=== PATIENT | female | born 1930 | race Caucasian/White ===

== ENCOUNTER 2020-04-05 17:40 | Emergency (ER) | payer OTHER, MEDICARE ==
[2020-04-05] MEDS ORDERED: LIDOCAINE 1% MPF 5 ML VIAL ONE (19:32)
[2020-04-05] MEDS ORDERED: CEPHALEXIN 250 MG CAP ONE (19:32)
--- OUTSIDE RECORDS SUMMARY | 2020-04-05 19:39 | XMS REPORT | Clinical Summary ---
:1930 Author Organization [facility] Address [address] [place] [address] Care Team Providers Name Role Phone Freedomrashi Rolando MondragonLauryn BURGOS Primary Care Provider Allergies Active Allergy Reactions Severity Noted Date Comments Codeine Itching 12/11/2012 Penicillins Rash Low 12/11/2012 Sulfa (Sulfonamide Antibiotics) Rash Low 3 Medications Medication Sig Dispensed Refills Start Date End Date Status JANUVIA 50 mg tablet Take 50 mg by 3 09/05/2018 Active mouth daily. glipiZIDE (GLUCOTROL) Take 10 mg by 3 09/20/2018 Active 10 MG 24 hr tablet mouth daily. furosemide (LASIX) 40 Take 40 mg by 3 08/17/2018 Active mg tablet mouth 2 (two) times a day. FLUoxetine (PROzac) 20 Take 20 mg by 3 09/11/2018 Active MG capsule mouth daily. carvedilol (COREG) 25 Take 25 mg by 0 Active MG tablet mouth 2 (two) times a day with meals. clonIDINE (CATAPRES) Take 0.1 mg by 0 Active 0.1 MG tablet mouth 3 (three) times a day. omeprazole (PriLOSEC) Take 40 mg by 0 Active 40 MG capsule mouth as needed. Active Problems Problem Noted Date Chest pain 11/03/2018 Angina pectoris 11/03/2018 SOB (shortness of breath) 11/03/2018 Essential hypertension 11/03/2018 Family History Medical History Relation Name Comments Cancer Mother Diabetes Mother Relation Name Status Comments Mother Social History Tobacco Use Types Packs/Day Years Used Date Never Assessed Sex Assigned at Date Recorded Not on file Job Start Date Occupation Industry Not on file Not on file Not on file Travel History Travel Start Travel End No recent travel history available. Last Filed Vital Signs Not on file Plan of Treatment Health Maintenance Due Date Last Done Comments DIABETIC RETINAL EYE EXAM 1930 DIABETIC FOOT EXAM 1942 URINE MICROALBUMIN 1942 SHINGLES VACCINES (#1) 1982 65+ PNEUMOCOCCAL VACCINE (1 of 2 - PCV13) 1997 INFLUENZA VACCINE 05/06/2020 Results Not on fileafter 04/05/2019 Insurance Payer Benefit Plan / Subscriber ID Effective Dates Phone Addre ss Type Group MEDICARE MEDICARE PART A xxxxxxxxxxx 1997-Present [place], [place] Medicare AND B AARP AARP SUPPLEMENT xxxxxxxxxxx 2018-Present Commercial Advance Directives For more information, please contact: [phone] 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
--- OUTSIDE RECORDS SUMMARY | 2020-04-05 19:39 | XMS REPORT | Summary of Care ---
:1930 Author Organization [facility] - Health Address [address] [place] [address] Care Team Providers Name Role Phone Pcp, Does Not Have A Primary Care Provider Encounter Details Date Type Department Care Team Description 03/24/2020 Orders Only [facility] Doctor Unassigned, No [address] [facility] [place] [address] [address] [place] [address] Allergies Active Allergy Reactions Severity Noted Date Comments Codeine Itching 12/11/2012 Penicillins Rash 12/11/2012 Sulfa (Sulfonamide Antibiotics) Rash 3 documented as of this encounter (statuses as of 03/24/2020) Medications Medication Sig Dispensed Refills Start Date End Date Status carvedilol (COREG) 25 mg Take 25 mg by 0 Active tablet mouth 2 (two) times daily with meals. lisinopril Take 20 mg by 0 Activ e (PRINIVIL,ZESTRIL) 20 mg mouth 2 (two) tablet times daily. cloNIDine (KAPVAY) 0.1 mg Take 0.1 mg by 0 Active Tb12 mouth 2 (two) times daily. torsemide (DEMADEX) 20 mg Take 20 mg by 0 Active tablet mouth daily. FLUoxetine (PROZAC) 20 mg Take 20 mg by 0 Active capsule mouth daily. levothyroxine (SYNTHROID) Take 88 mcg by 0 Active 88 mcg tablet mouth every morning. Cyanocobalamin (VITAMIN Take by mouth 0 Active B-12) 1,000 mcg TbSR daily. glipiZIDE XL (GLUCOTROL Take 1 Tab by 90 Tab 0 06/10/2013 Active XL) 10 mg 24 hr mouth daily tabletIndications: Type with breakfast. II or unspecified type diabetes mellitus with unspecified complication, uncontrolled documented as of this encounter (statuses as of 03/24/2020) Active Problems No known active problemsdocumented as of this encounter (statuses as of 03/24/2020) Social History Tobacco Use Types Packs/Day Years Used Date Never Smoker Smokeless Tobacco: Never Used Alcohol Use Drinks/Week oz/Week Comments No Sex Assigned at Date Recorded Not on file Job Start Date Occupation Industry Not on file Not on file Not on file Travel History Travel Start Travel End No recent travel history available. COVID-19 Exposure Response Date Recorded In the last month, have you been in contact with No / Unsure 03/24/2020 9:50 AM CDT someone who was confirmed or suspected to have Coronavirus / COVID-19? documented as of this encounter Last Filed Vital Signs Not on filedocumented in this encounter Plan of Treatment Date Type Specialty Care Team Description 03/24/2020 Nurse Visit Infusion Therapy Rolando Oswald, DO [address] [place] [address] 1, Ad[facility] Infusion Nurse Health Maintenance Due Date Last Done Comments DTaP,Tdap,and Td Vaccines (1 - Tdap) 1943 Depression Screening 1944 Zoster Recombinant Vaccine (SHINGRIX) (1 of 2) 1982 Medicare Wellness Visit 1997 Osteoporosis Screening 1997 PNEUMOCOCCAL VACCINES 65+ (1 of 2 - PCV13) 1997 INFLUENZA VACCINE (Season Ended) 2020 documented as of this encounter Procedures Procedure Name Priority Date/Time Associated Diagnosis Comme nts ASSIGNMENT OF BENEFITS Routine 03/24/2020 9:51 AM CDT documented in this encounter Results Not on filedocumented in this encounter Insurance Payer Benefit Plan / Subscriber ID Effective Dates Phone Addre ss Type Group MEDICARE MEDICARE PART xxxxxxxxxxx 1997-Yaakov 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
--- OUTSIDE RECORDS SUMMARY | 2020-04-05 19:39 | XMS REPORT | Continuity of Care Document ---
:1930 Author Organization [facility] t Address [address] [place] [address] Care Team Providers Name Role Phone Radha Oswald DO Primary Care Physician 1, Infusion Nurse Attending Clinician Unavailable Doctor Unassigned, Name Attending Clinician Unavailable Problems Condition Condition Condition Status Onset Resolution Last Treating Co mments Source Name Details Category Date Date Treatment Clinician Date Chest pain Chest pain Disease Active [place] 11-03 [facility] 00:00: st 00 Angina Angina Disease Active [place] pectoris pectoris 11-03 Method i 00:00: st 00 SOB SOB Disease Active [place] (shortness (shortness 11-03 [facility] of breath) of breath) 00:00: st 00 Essential Essential Disease Active [facility] hypertensi hypertensi 11-03 Me [facility] on on 00:00: st 00 Allergies, Adverse Reactions, Alerts Allergy Allergy Status Severity Reaction(s) Onset Inactive Treating Comm ents Source Name Type Date Date Clinician Codeine Propensi Active Itching [place] ty to 12-11 [facility] adverse 00:00: st reaction 00 s to drug Penicill [place]i Active Rash [place] ty to 12-11 [facility] adverse 00:00: st reaction 00 s to drug Sulfa Propensi Active Rash [place] (Sulfona ty to 12-11 Methodi mide adverse 00:00: st Antibiot reaction 00 ics) s to drug Family History Family Member Diagnosis Comments Start Date Stop Date Source Natural mother Cancer [place] [facility] Natural mother Diabetes [place] [facility] Social History Social Habit Start Date Stop Date Quantity Comments Source Sex Assigned At [facility] Medications Ordered Filled Start Stop Current Ordering Indication Dosage Frequency Signature Comments Components Source Medication Medication Date Date Medication? Clinician (SIG) Name Name carvedilol Yes 25mg Q.5D Take 25 mg [place] (COREG) 25 -29 by mouth 2 [facility] MG tablet 10:07: (two) st 53 times a day with meals. clonIDINE Yes .1mg [id number] Take 0.1 [place] (CATAPRES) 11-03 [id number] mg by Me [facility] 0.1 MG 10:07: 3D mouth 3 st tablet 53 (three) times a day. omeprazole Yes 40mg Take 40 mg [place] (PriLOSEC) 11-03 by mouth Metho di 40 MG 10:07: as needed. st capsule 53 glipiZIDE 2017-10 Yes 10mg QD Take 10 mg [place] (GLUCOTROL) 2-16 by mouth Meth zachery 10 MG 24 hr 00:00: daily. st tablet 00 FLUoxetine 2017-10 Yes 20mg QD Take 20 mg [place] (PROzac) 20 07 by mouth Meth zachery MG capsule 00:00: daily. st 00 JANUVIA 50 2017-10 Yes 50mg QD Take 50 mg [place] mg tablet 11-06 by mouth Method i 00:00: daily. st 00 furosemide 2017-10 Yes 40mg Q.5D Take 40 mg [place] (LASIX) 40 1-12 by mouth 2 Met [facility] mg tablet 00:00: (two) st 00 times a day. Procedures This patient has no known procedures. Plan of Care Planned Activity Planned Date Details Comments Source Future Scheduled 2020-05-06 INFLUENZA VACCINE [place] [facility] 00:00:00 [code = INFLUENZA VACCINE] Future Scheduled 1997 65+ PNEUMOCOCCAL [facility] 00:00:00 VACCINE (1 of 2 - PCV13) [code = 65+ PNEUMOCOCCAL VACCINE (1 of 2 - PCV13)] Future Scheduled 1982 SHINGLES VACCINES (#1) [place] [facility] 00:00:00 [code = SHINGLES VACCINES (#1)] Future Scheduled 1942 DIABETIC FOOT EXAM [place] [facility] 00:00:00 [code = DIABETIC FOOT EXAM] Future Scheduled 1942 URINE MICROALBUMIN [place] [facility] 00:00:00 [code = URINE MICROALBUMIN] Future Scheduled 1930 DIABETIC RETINAL EYE [facility] 00:00:00 EXAM [code = DIABETIC RETINAL EYE EXAM] Encounters Start End Encounter Admission Attending Care Care Encounter Source Date/Time Date/Time Type Type Clinicians Facility Department ID 2020-03-24 2020-03-24 Nurse 1, Jaime GOMEZ [id number] 27 10:05:14 10:20:14 Visit Infusion Erica [id number] Nurse Cassie [id number] Surgical [id number] [place] 053 2020-03-24 2020-03-24 Orders Doctor STEPHEN [id number] 00:00:00 00:00:00 Only Unassigned, AMINATA [id number] [place] [facility] [id number] Results This patient has no known results.
--- OUTSIDE RECORDS SUMMARY | 2020-04-05 19:39 | XMS REPORT | Summary of Care ---
:1930 Author Organization [facility] - [facility] Address [address] [place] [address] Care Team Providers Name Role Phone Pcp, Does Not Have A Primary Care Provider Reason for Visit Reason Comments INJECTION (Routine) Status Reason Specialty Diagnoses / Referred By Referred To Procedures Contact Contact Closed IM-INTERNAL Diagnoses Chronic kidney disease, stage 5 Chronic kidney disease, stage 5 Rolando Desir, 1, Adc Infusion MEDICINE / Procedures PROCRIT INJECTION INJECTION DO Nurse Infusion Therapy [address] [place] [address] Encounter Details Date Type Department Care Team Description 03/24/2020 Nurse Visit [facility] Infusion Crystal Desir G, DO [address] [place] [address] Chronic kidney disease, stage V (Primary Dx); Therapy - [place] 1, [facility] Infusion Nurse Anemia of chronic disease; [address] [facility] 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; Drive Erythropoietin deficiency an emia; [place], [place] Anemia, unspeci fied type; [address] Folate deficiency; [phone] B12 deficiency Allergies Active Allergy Reactions Severity Noted Date Comments Codeine Itching 12/11/2012 Valsartan Dizziness 03/24/2020 Penicillins Rash 12/11/2012 Sulfa (Sulfonamide Antibiotics) Rash [...] type diabetes mellitus with unspecified complication, uncontrolled Hospital, Clinic, or Other Ordered Dose Route Frequency Start Date End Date Status Facility Administered Medication cloNIDine (CATAPRES) tablet 0.1 mg Oral ONCE 03/24/2020 0 03/24/2020 Ended 0.1 mg epoetin megan-epbx 88629 Units SC ONCE 03/24/2020 0 Ended (RETACRIT) injection 10,000 Units documented as of this encounter (statuses as [...] of this encounter Last Filed Vital Signs Vital Sign Reading Time Taken Comments Blood Pressure 195/85 03/24/2020 10:25 AM CDT Pulse 56 03/24/2020 10:25 AM CDT Temperature 36.9 C (98.4 F) 03/24/2020 10:25 AM CDT Respiratory Rate 20 03/24/2020 10:25 AM CDT Oxygen Saturation 97% 03/24/2020 10:25 AM CDT Inhaled Oxygen Concentration - - Weight 65.3 kg (144 lb) 03/24/2020 10:25 AM CDT Height 162.6 cm (5' 4") 03/24/2020 10:25 AM CDT Body Mass Index 24.72 03/24/2020 10:25 AM CDT documented in this encounter Progress Notes Cynthia Julien RN - 03/24/2020 10:30 AM CDT Infusion Therapy Note ALLERGIES: Patient has no known allergies. Diagnosis (Primary) Stage 5 chronic kidney disease Time Out Patient identified by Name and Infusion verified with Aury Domínguez RN Comments: (1005) Patient arrived preop for Procrit injection, patient verified, plan of care explained to patient, patient verbalized understanding. Monitors applied, VSS, patient denies pain at this time. Procrit order placed and pharmacy notified. Pts BP 195/85 Dr Desir contacted new orders received. For Clonidine .01mg PO now done at 1058. Will monitor BP (1126) Pt refused labs. Called Dr Desir, he gave lab results from 03/08. Hgb of 8.8. Can draw H&H and 6 month labs next visit. (1133) Aseptic technique applied for SQ injection to abdomen, patient tolerated well, no adverse reactions noted. (1135) Patient with no signs or symptoms of any adverse reactions, medication card and handout givento patient, patient verbalized understanding. Patient instructed to return for next scheduled injection as noted on handout and to follow-up with ordering physician if any adverse reactions occur. Patient verbalized understanding. (1145) Patient escorted to front of hospital in stable condition and ride awaiting. HYDRATION/THERAPEUTIC DRUG DOSE ROUTE START TIME STOP TIME Procrit 10,000 units SQ 1133 1133 documented in this encounter Plan of Treatment Name Type Priority Associated Diagnoses Order S chedule PROFILE / HEMOGRAM LAB Routine ONCE for 1 Occurrences starting 2019 until 03/24/2020 VITAMIN B12, LEVEL LAB Routine B12 deficiency Expecte d: 03/24/2020, Expires: 2020 FOLATE LAB Routine Folate deficiency Expected: 03/24/2020, Expires: 2020 IRON LAB Routine Anemia of chronic Expected: 03/24/2020, disease Expires: 03/24/2021 Chronic kidney disease, stage V 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 int josefina Erythropoietin deficiency anemia TOTAL IRON BINDING LAB Routine 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, CAPACITY disease Expires: 03/24/2021 Chronic kidney disease, stage V 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 int josefina Erythropoietin deficiency anemia FERRITIN SERUM LAB Routine Anemia of chronic Expected : 03/24/2020, disease Expires: 03/24/2021 Chronic kidney disease, stage V 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 int josefina Erythropoietin deficiency anemia Health Maintenance Due Date Last Done Comments DTaP,Tdap,and Td Vaccines (1 - Tdap) 1943 Depression Screening 1944 Zoster Recombinant Vaccine (SHINGRIX) (1 of 2) 1982 Medicare Wellness Visit 1997 Osteoporosis Screening 1997 PNEUMOCOCCAL VACCINES 65+ (1 of 2 - PCV13) 1997 INFLUENZA VACCINE (Season Ended) 2020 documented as of this encounter Results Not on filedocumented in this encounter Visit Diagnoses Diagnosis Chronic kidney disease, stage V - Primar y Chronic kidney disease, Stage V Anemia of chronic disease Anemia of other chronic disease Iron deficiency anemia secondary to inad equate dietary iron intake Erythropoietin deficiency anemia Other specified anemias Anemia, unspecified type Folate deficiency Other B-complex deficiencies B12 deficiency Other B-complex deficiencies documented in this encounter Administered Medications Medication Order MAR Action Action Date Dose Rate Site cloNIDine (CATAPRES) tablet 0.1 Given 03/24/2020 10:58 AM CDT 0. 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
--- NOTE | 2020-04-05 19:53 | EDPHYS ---
Physician Documentation [facility] Name: Zafar Short Age: 89 yrs Sex: Female : 1930 Arrival Date: 04/05/2020 Time: 17:43 Bed 15 Private MD: Rolando Oswald ED Physician Jose Luis Brady HPI: 04/05 18:54 This 89 yrs old Female presents to ER via Wheelchair with complaints of Knot kb Under Breast. 18:54 The patient presents with an abscess of the under left breast. Description: kb erythematous, swollen, warm. Onset: The symptoms/episode began/occurred 1 week(s) ago. Possible cause(s): unknown. Associated signs and symptoms: Pertinent positives: erythema, swelling. Modifying factors: the symptoms are alleviated by nothing, the symptoms are aggravated by squeezing the lesion and expressing the contents, touching. Severity of symptoms: At their worst the symptoms were mild, in the emergency department the symptoms are unchanged. The patient has not experienced similar symptoms in the past. The patient has not recently seen a physician. Historical: - Allergies: 17:56 Codeine; em 17:56 PENICILLINS; em 17:56 Sulfa (Sulfonamide Antibiotics); em - PMHx: 17:56 chronic kidney disease; Diabetes - NIDDM; Anemia; Hypertension; em - PSHx: 17:56 Hysterectomy; Cholecystectomy; BACK surgery; Knee surgery; ROTATOR CUFF; em - Immunization history:: Adult Immunizations up to date. - Social history:: Smoking status: Patient denies any tobacco usage or history of. ROS: 18:53 Constitutional: Negative for fever, chills, and weight loss, Cardiovascular: Negative kb for chest pain, palpitations, and edema, Respiratory: Negative for shortness of breath, cough, wheezing, and pleuritic chest pain, Abdomen/GI: Negative for abdominal pain, nausea, vomiting, diarrhea, and constipation, Back: Negative for injury and pain, MS/Extremity: Negative for injury and deformity, Neuro: Negative for headache, weakness, numbness, tingling, and seizure. 18:53 Skin: Positive for abscess, of the under left breast. Exam: 18:53 Constitutional: This is a well developed, well nourished patient who is awake, alert, kb and in no acute distress. Head/Face: Normocephalic, atraumatic. Chest/axilla: Normal chest wall appearance and motion. Nontender with no deformity. No lesions are appreciated. Cardiovascular: Regular rate and rhythm with a normal S1 and S2. No gallops, murmurs, or rubs. Normal PMI, no JVD. No pulse deficits. Respiratory: Lungs have equal breath sounds bilaterally, clear to auscultation and percussion. No rales, rhonchi or wheezes noted. No increased work of breathing, no retractions or nasal flaring. Abdomen/GI: Soft, non-tender, with normal bowel sounds. No distension or tympany. No guarding or rebound. No evidence of tenderness throughout. MS/ Extremity: Pulses equal, no cyanosis. Neurovascular intact. Full, normal range of motion. Neuro: Awake and alert, GCS 15, oriented to person, place, time, and situation. Cranial nerves II-XII grossly intact. Motor strength 5/5 in all extremities. Sensory grossly intact. Cerebellar exam normal. Normal gait. 18:53 Skin: abscess, that is small, of the under left breast, with fluctuance, with induration. Vital Signs: 17:52 BP 188 / 71; Pulse 63; Resp 18; Temp 98.5(O); Pulse Ox 98% on R/A; Weight 65.32 kg; em Height 5 ft. 4 in. (162.56 cm); Pain 8/10; 20:00 BP 158 / 80; Pulse 60; Resp 18; Temp 98.5; Pulse Ox 100% on R/A; mg2 17:52 Body Mass Index 24.72 (65.32 kg, 162.56 cm) em Procedures: 19:51 I \T\ D: Incision and drainage was performed for an abscess of the under left breast kb Prepped with Betadine, Anesthetized with 2 ml's 1% Lidocaine. Incised with #11 blade. Drained moderate amount purulent fluid. Dressing: sterile 4x4 gauze, the patient tolerated the procedure well. MDM: 18:46 Patient medically screened. kb 18:52 Data reviewed: vital signs, nurses notes. Data interpreted: Pulse oximetry: on room air kb is 98 %. Interpretation: normal. Counseling: I had a detailed discussion with the patient and/or guardian regarding: the historical points, exam findings, and any diagnostic results supporting the discharge/admit diagnosis, the need for outpatient follow up, a family practitioner, to return to the emergency department if symptoms worsen or persist or if there are any questions or concerns that arise at home. 04/05 18:52 Order name: I\T\D Setup; Complete Time: 19:28 kb Administered Medications: 19:28 Drug: KeFLEX 500 mg Route: PO; mg2 19:58 Follow up: Response: No adverse reaction mg2 19:45 Drug: Lidocaine (1 %) 1 vials {Note: administered by the provider.} Volume: 5 ml; mg2 Route: Infiltration; 19:59 Follow up: Response: No adverse reaction mg2 Disposition: 04/06 05:45 Co-signature as Attending Physician, Jose Luis Brady MD I agree with the assessment and kdr plan of care. Disposition: 04/05/20 19:53 Discharged to Home. Impression: Cutaneous abscess of chest wall. - Condition is Stable. - Discharge Instructions: Skin Abscess, [id number]. - Prescriptions for Keflex 500 mg Oral Capsule - take 1 capsule by ORAL route every 8 hours for 10 days; 30 capsule. - Medication Reconciliation Form, Thank You Letter, Antibiotic Education, Prescription Opioid Use form. - Follow up: Private Physician; When: 2 - 3 days; Reason: Recheck today's complaints, Continuance of care, Re-evaluation by your physician. Follow up: Emergency Department; When: As needed; Reason: Worsening of condition. Signatures: Eunice Wilks, CARD DEALER-C CARD DEALER-Ckb Jose Luis Brady MD MD [facility] Alan Balbuena, EMILY RN Phil Reyes RN RN mg2 Corrections: (The following items were deleted from the chart) 04/05 20:03 19:53 04/05/2020 19:53 Discharged to Home. Impression: Cutaneous abscess of chest wall. mg2 Condition is Stable. Forms are Medication Reconciliation Form, Thank You Letter, Antibiotic Education, Prescription Opioid Use. Follow up: Private Physician; When: 2 - 3 days; Reason: Recheck today's complaints, Continuance of care, Re-evaluation by your physician. Follow up: Emergency Department; When: As needed; Reason: Worsening of condition. kb
--- NOTE | 2020-04-05 19:53 | ER ---
Nurse's Notes [facility] Name: Zafar Short Age: 89 yrs Sex: Female : 1930 Arrival Date: 04/05/2020 Time: 17:43 Bed 15 Private MD: Rolando Oswald Diagnosis: Cutaneous abscess of chest wall Presentation: 04/05 17:52 Chief complaint: Patient states: knot on left side of rib for about a month, last week em it became red, painful and started having drainage, denies fever. Coronavirus screen: Proceed with normal triage. Patient denies a cough. Patient denies shortness of breath or difficulty breathing. Patient denies measured and/or subjective temperature greater than 100.4F prior to today's visit. Patient denies travel on a cruise ship or to a country the [facility] currently lists as an affected area. Patient denies contact with known and/or suspected case of COVID-19. Ebola Screen: Patient negative for fever greater than or equal to 101.5 degrees Fahrenheit, and additional compatible Ebola Virus Disease symptoms Patient denies exposure to infectious person. Patient denies travel to an Ebola-affected area in the 21 days before illness onset. No symptoms or risks identified at this time. Initial Sepsis Screen: Does the patient meet any 2 criteria? No. Patient's initial sepsis screen is negative. Does the patient have a suspected source of infection? Yes: Skin breakdown/wound. Risk Assessment: Do you want to hurt yourself or someone else? Patient reports no desire to harm self or others. Onset of symptoms was March 06, 2000. 17:52 Method Of Arrival: Wheelchair em 17:52 Acuity: FELISHA 3 em Historical: - Allergies: 17:56 Codeine; em 17:56 PENICILLINS; em 17:56 Sulfa (Sulfonamide Antibiotics); em - PMHx: 17:56 chronic kidney disease; Diabetes - NIDDM; Anemia; Hypertension; em - PSHx: 17:56 Hysterectomy; Cholecystectomy; BACK surgery; Knee surgery; ROTATOR CUFF; em - Immunization history:: Adult Immunizations up to date. - Social history:: Smoking status: Patient denies any tobacco usage or history of. Screenin:35 Abuse screen: Denies threats or abuse. Denies injuries from another. Nutritional mg2 screening: No deficits noted. Tuberculosis screening: No symptoms or risk factors identified. Fall Risk None identified. Assessment: 19:34 General: Appears in no apparent distress. comfortable, Behavior is calm, cooperative. mg2 Pain: Complains of pain in under the breast. Neuro: Level of Consciousness is awake, alert, obeys commands, Oriented to person, place, time, situation. Cardiovascular: Capillary refill < 3 seconds Patient's skin is warm and dry. Respiratory: Airway is patent Respiratory effort is even, unlabored, Respiratory pattern is regular, symmetrical. GI: No signs and/or symptoms were reported involving the gastrointestinal system. : No signs and/or symptoms were reported regarding the genitourinary system. EENT: No signs and/or symptoms were reported regarding the EENT system. Derm: Abscess located on under the breast is quarter sized, is raised, was lanced by patient prior to arrival. Musculoskeletal: Circulation, motion, and sensation intact. Capillary refill < 3 seconds. Vital Signs: 17:52 BP 188 / 71; Pulse 63; Resp 18; Temp 98.5(O); Pulse Ox 98% on R/A; Weight 65.32 kg; em Height 5 ft. 4 in. (162.56 cm); Pain 8/10; 20:00 BP 158 / 80; Pulse 60; Resp 18; Temp 98.5; Pulse Ox 100% on R/A; mg2 17:52 Body Mass Index 24.72 (65.32 kg, 162.56 cm) em ED Course: 17:43 Patient arrived in ED. ag5 17:44 Unknown, Unknown is Private Physician. ag5 17:44 Rolando Oswald DO is Private Physician. ag5 17:54 Triage completed. em 17:56 Arm band placed on. em 18:04 [facility] kb 18:04 Jose Luis Brady MD is Attending Physician. kb 19:28 Phil Reyes RN is Primary Nurse. mg2 19:35 Patient has correct armband on for positive identification. Pulse ox on. NIBP on. Door mg2 closed. Warm blanket given. 19:35 Patient did not have IV access during this emergency room visit. mg2 20:02 Assist provider with I \T\ D: of an abscess on left under the breast Set up I\T\D tray. mg 2 Performed by Eunice HAGANC Dressing with 4X4s, Patient tolerated well. Administered Medications: 19:28 Drug: KeFLEX 500 mg Route: PO; mg2 19:58 Follow up: Response: No adverse reaction mg2 19:45 Drug: Lidocaine (1 %) 1 vials {Note: administered by the provider.} Volume: 5 ml; mg2 Route: Infiltration; 19:59 Follow up: Response: No adverse reaction mg2 Outcome: 19:53 Discharge ordered by MD. ansari 20:03 Discharged to home ambulatory. mg2 20:03 Condition: stable 20:03 Discharge instructions given to patient, Instructed on discharge instructions, follow up and referral plans. medication usage, wound care, Demonstrated understanding of instructions, follow-up care, medications, wound care, Prescriptions given X 1. 20:03 Patient left the ED. mg2 Signatures: Eunice Wilks, [employer]-Ckb Alan Balbuena, RN RN Phil Connolly RN RN mg2 Joseluis Mejia ag5
[2020-04-05 20:09] VITALS: TEMP 98.5
[2020-04-05 20:11] VITALS: BP 158/80; O2SAT 100
== END 2020-04-05 20:03 | disposition home or self-care (01) ==
LOC: ER 17:40
PROC: 0J960ZZ Drainage of Chest Subcutaneous Tissue and Fascia, Open Approach (ICD-10-PCS; principal; 2020-04-05)
DX: L02.213 Cutaneous abscess of chest wall (principal); I12.9 Hypertensive chronic kidney disease with stage 1 through stage 4 chronic kidney disease, or unspecified chronic kidney disease; E11.22 Type 2 diabetes mellitus with diabetic chronic kidney disease; N18.9 Chronic kidney disease, unspecified; Z88.0 Allergy status to penicillin; Z88.2 Allergy status to sulfonamides; Z88.5 Allergy status to narcotic agent
CPT/HCPCS: 99284

== ENCOUNTER 2021-05-07 05:56 | Inpatient (IN) | payer OTHER, MEDICARE ==
--- OUTSIDE RECORDS SUMMARY | 2021-05-07 05:59 | XMS REPORT | Continuity of Care Document ---
:1930 Author Organization [facility] t Address 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 11-03 00:00: Hospita 00 l SOB SOB Disease Active Methodi (shortness (shortness 11-03 of breath) of breath) 00:00: Ho spita 00 l Essential Essential Disease Active Met hodi hypertensi hypertensi 11-03 on on 00:00: Hospita 00 l Chest pain Chest pain Disease Active M ethodi 11-03 00:00: Hospita 00 l Allergies, Adverse Reactions, Alerts Allergy Allergy Status Severity Reaction(s) Onset Inactive Treating Comm ents Source Name Type Date Date Clinician Codeine Propensi Active Itching Method i ty to 12-11 st adverse 00:00: Hospita reaction 00 l s to drug Penicill Propensi Active Rash Method i ins ty to 12-11 st adverse 00:00: Hospita reaction 00 l s to drug Sulfa Propensi Active Rash Methodi (Sulfona ty to 12-11 st mide adverse 00:00: Hospita Antibiot reaction 00 l ics) s to drug Family History Family Member Diagnosis Comments Start Date Stop Date Source Natural mother Cancer [facility] Natural mother Diabetes [facility] Social History Social Habit Start Date Stop Date Quantity Comments Source Sex Assigned At [birth year] [facility] 00:00:00 00:00:00 Smoking Status Start Date Stop Date Source Unknown if ever smoked [facility] Medications Ordered Filled Start Stop Current Ordering Indication Dosage Frequency Signature Comments Components Source Medication Medication Date Date Medication? Clinician (SIG) Name Name carvedilol Yes 25mg Q.5D Take 25 mg M ethodi (COREG) 25 -[address] MG tablet 16:07: (two) Hospita 53 times a l day with meals. clonIDINE Yes .1mg [id number] Take 0.1 Methodi (CATAPRES) - [id number] mg by st 0.1 MG 16:07: 3D mouth 3 Hospita tablet 53 (three) l times a day. omeprazole Yes 40mg Take 40 mg M ethodi (PriLOSEC) 11-[address] 40 MG 16:07: as needed. Hospit a capsule 53 l glipiZIDE 2017-10 Yes 10mg QD Take 10 mg Me thodi (GLUCOTROL) -[address] 10 MG 24 hr 00:00: daily. Hosp trevor tablet 00 l FLUoxetine 2017-10 Yes 20mg QD Take 20 mg M ethodi (PROzac) 20 -[address] MG capsule 00:00: daily. Hospi ta 00 l JANUVIA 50 2017-10 Yes 50mg QD Take 50 mg M ethodi mg tablet - by mouth st 00:00: daily. Hospita 00 l furosemide 2017-10 Yes 40mg Q.5D Take 40 mg M ethodi (LASIX) 40 1-[address] mg tablet 00:00: (two) Hospita 00 times a l day. Procedures This patient has no known procedures. Plan of Care Planned Activity Planned Date Details Comments Source Future Scheduled Test 65+ PNEUMOCOCCAL [facility] VACCINE (1 of 4 - PCV13) [code = 65+ PNEUMOCOCCAL VACCINE (1 of 4 - PCV13)] Future Scheduled Test DIABETES: RETINAL EYE [facility] EXAM [code = DIABETES: RETINAL EYE EXAM] Future Scheduled Test DIABETIC FOOT EXAM [facility] [code = DIABETIC FOOT EXAM] Future Scheduled Test URINE MICROALBUMIN [facility] [code = URINE MICROALBUMIN] Future Scheduled Test COVID-19 VACCINE (1) [facility] [code = COVID-19 VACCINE (1)] Future Scheduled Test SHINGLES VACCINES (#1) [facility] [code = SHINGLES VACCINES (#1)] Future Scheduled Test INFLUENZA VACCINE [code [facility] = INFLUENZA VACCINE] Encounters Start End Encounter Admission Attending Care Care Encounter Source Date/Time Date/Time Type Type Clinicians Facility Department ID 2020-10-05 2020-10-05 Pauline Markos [facility] [id number] 00:00:00 00:00:00 Alireza Mehta SPECIALTY [id number] CARE [id number] CENTER AT [id number] [facility] 2020-09-27 2020-09-27 Nurse 1, [facility] [id number] 09:22:54 09:37:54 Visit Infusion [place] [id number] Nurse Matthews [id number] Surgical [id number] [place] [address]202020-09-27 2020-09-27 Orders Doctor STEPHEN [id number] 00:00:00 00:00:00 Only Unassigned, [place] [id number] [place] [facility] [id number] 2020-09-14 2020-09-14 Nurse 1, [facility] [id number] 10:35:08 10:50:08 Visit Infusion [place] [id number] Nurse Matthews [id number] Surgical [id number] [place] [address] 2020-08-29 2020-08-29 Nurse 1, [facility] [id number] 10:21:00 10:36:00 Visit Infusion [place] [id number] Nurse Matthews [id number] Surgical [id number] [place] [id number] 2020-08-17 Nurse 1, [facility] [id number] 10:03:32 10:18:32 Visit Infusion [place] [id number] Nurse Cassie [id number] Surgical [id number] [place] [address] 2020-08-17 2020-08-17 Orders Doctor MITCHELL [id number] 00:00:00 00:00:00 Only Unassigned, AMINATA [id number] [place] [facility] [id number] [id number] 2020-08-03 2020-08-03 Nurse 1, [facility] [id number] 10:05:56 10:20:56 Visit Infusion [place] [id number] Nurse Cassie [id number] Surgical [id number] [place] [address] 2020-08-03 2020-08-03 Orders Doctor MITCHELL [id number] 00:00:00 00:00:00 Only Unassigned, [id number] [id number] 2020-07-20 2020-07-20 Nurse 1, [facility] [id number] 09:17:23 10:17:23 Visit Infusion [place] [id number] Nurse Cassie [id number] Surgical [id number] [place] [address] Results This patient has no known results.
[2021-05-07 07:41] LABS: Absolute Lymphocytes (CBC) 0.5 K/uL (0.7-4.9); Hematocrit 29.1 % (36.0-45.0); Lymphocytes % 6.3 % (15.3-44.8); MPV 9.9 fL (7.6-11.3); RBC Red Blood Cell Count 3.22 M/uL (3.86-4.86)
[2021-05-07 07:42] LABS: Protime INR 1.03
[2021-05-07 07:43] LABS: Urine Blood 1+ (Negative); Urine Glucose Trace (Negative); Urine Protein 3+ (Negative)
[2021-05-07 08:17] LABS: Urine Bacteria <20 /HPF (<20); Urine RBC NONE SEEN /HPF (NONE SEEN)
[2021-05-07 08:22] LABS: Albumin 3.2 g/dL (3.4-5.0); Bilirubin Direct 0.2 mg/dL (0-0.2); Bilirubin Total 0.5 mg/dL (0.2-1.0); Protein, Total 6.8 g/dL (6.4-8.2); Troponin (Emerg Dept Use Only) 0.22 ng/mL (0.0-0.045)
[2021-05-07] MEDS ORDERED: METOPROLOL TAR 50 MG TAB ONE (08:24)
[2021-05-07] MEDS ORDERED: METOPROLOL TARTRATE 5 MG/5 ML INJ IV ONE (08:24)
--- NOTE | 2021-05-07 09:02 | ER ---
Nurse's Notes [facility] Name: Zafar Short Age: 89 yrs Sex: Female : 1930 Arrival Date: 05/07/2021 Time: 06:09 Bed 8 Private MD: Diagnosis: Unspecified atrial fibrillation;Unspecified combined systolic (congestive) and diastolic (congestive) heart failure;Acute kidney failure, unspecified Presentation: 05/07 06:09 Chief complaint: EMS states: they were toned out for report of pt with shortness of bb breath x 2 days pt was 95% on RA on their arrival. Coronavirus screen: difficulty breathing, Client presents with at least one sign or symptom that may indicate coronavirus-19. Standard/surgical mask placed on the client. Ebola Screen: No symptoms or risks identified at this time. Initial Sepsis Screen: Does the patient meet any 2 criteria? No. Patient's initial sepsis screen is negative. Does the patient have a suspected source of infection? No. Patient's initial sepsis screen is negative. Risk Assessment: Do you want to hurt yourself or someone else? Patient reports no desire to harm self or others. Onset of symptoms was May 05, 2021. 06:09 Method Of Arrival: EMS: [facility] bb 06:09 Acuity: FELISHA 2 bb Triage Assessment: 06:11 General: Appears uncomfortable, slender, Behavior is calm, cooperative. Pain: Denies bb pain. Neuro: Level of Consciousness is awake, alert, obeys commands, Oriented to person, place, time, situation. Cardiovascular: Capillary refill < 3 seconds Patient's skin is warm and dry. Respiratory: Reports shortness of breath Respiratory effort is labored, Onset: The symptoms/episode began/occurred 2 days ago, the patient has mild shortness of breath. Historical: - Allergies: 06:11 Codeine; bb 06:11 PENICILLINS; bb 06:11 Sulfa (Sulfonamide Antibiotics); bb - PMHx: 06:11 Anemia; chronic kidney disease; Diabetes - NIDDM; Hypertension; Pulmonary embolisim; bb COPD; - Immunization history:: Adult Immunizations up to date. - Social history:: Smoking status: Patient/guardian denies using tobacco. Screenin:10 Abuse screen: Denies threats or abuse. Denies injuries from another. Nutritional tr6 screening: No deficits noted. Tuberculosis screening: No symptoms or risk factors identified. Fall Risk None identified. Assessment: 08:10 Cardiovascular: Rhythm is atrial fibrillation. Respiratory: Airway is patent Breath tr6 sounds with crackles. 08:16 General: Appears comfortable, Behavior is cooperative, appropriate for age. Pain: tr6 Denies pain. Neuro: Level of Consciousness is awake, alert, obeys commands, Oriented to person, place, time, situation, Gait is unsteady. Cardiovascular: Edema is 3+ to left midcalf, left ankle, left foot, right midcalf, right ankle and right foot pitting to left midcalf, left ankle, left foot, right midcalf, right ankle and right foot. Respiratory: Respiratory effort is labored. GI: No deficits noted. : No deficits noted. EENT: No deficits noted. Derm: No deficits noted. Musculoskeletal: No deficits noted. 12:13 Reassessment: MD Data at bedside. tr6 Vital Signs: 06:09 BP 200 / 87; Pulse 83; Resp 20 S; Temp 98.4(TE); Pulse Ox 100% on 2 lpm NC; Weight bb 61.23 kg (R); Height 5 ft. 4 in. (162.56 cm) (R); Pain 0/10; 08:10 BP 233 / 96; Pulse 77; Resp 20; Pulse Ox 100% on R/A; tr6 10:00 BP 198 / 84; Pulse 78; Resp 20; Pulse Ox 98% on R/A; tr6 11:00 BP 184 / 69; Pulse 76; Resp 20; Pulse Ox 98% on R/A; tr6 12:00 BP 196 / 78; Pulse 79; Resp 18; Pulse Ox 100% on 2 lpm NC; tr6 13:00 BP 186 / 71; Pulse 77; Resp 20; Pulse Ox 100% on 2 lpm NC; tr6 14:24 BP 180 / 72; Pulse 75; Resp 18; Pulse Ox 100% on 2 lpm NC; tr6 06:09 Body Mass Index 23.17 (61.23 kg, 162.56 cm) bb ED Course: 06:09 Patient arrived in ED. bb 06:11 Triage completed. bb 06:11 Arm band placed on pt remains on EMS stretcher awaiting room assignment. bb 07:18 Thor Chandler PA is PHCP. cp 07:18 Charlie Gordon MD is Attending Physician. cp 07:23 Vane Kitchen, EMILY is Primary Nurse. tr6 07:54 EKG done, by ED staff, reviewed by Thor FELTON. em1 07:57 XRAY Chest (1 view) In Process Unspecified. EDMS 08:13 Resting quietly. tr6 08:13 Patient has correct armband on for positive identification. Bed in low position. Call tr6 light in reach. Side rails up X 1. Side rails up X2. case monitor on. Pulse ox on. NIBP on. Door closed. Noise minimized. Visitors limited. Lights dimmed. Moved to private room. Warm blanket given. Diet: Patient is NPO. 08:13 No provider procedures requiring assistance completed. Maintain EMS IV. Dressing tr6 intact. Good blood return noted. Site clean \T\ dry. Gauge \T\ site: L AC 20. Patient maintains SpO2 saturation greater than 95% on room air. 08:18 Primary Nurse role handed off by Vane Kitchen, EMILY bd 08:42 Vane Kitchen, EMILY is Primary Nurse. tr6 09:00 Aakash Herrera is Hospitalizing Provider. cp 09:56 Stauffer cath inserted, using sterile technique, 16 Fr., by ED staff, balloon inflated, to tr6 gravity drainage. 12:14 Patient admitted, IV remains in place. tr6 Administered Medications: 08:09 Drug: Lopressor (metoprolol) 5 mg Route: IVP; Site: left antecubital; tr6 08:09 Drug: Lopressor (metoprolol TARTRATE) 50 mg Route: PO; tr6 09:19 CANCELLED (Physician Discretion): hydrALAZINE 10 mg IVP once cp 09:28 Drug: Aspirin Chewable Tablet 324 mg Route: PO; tr6 09:28 Drug: Lovenox (enoxaparin) 1 mg/kg Route: Sub-Q; Site: abdomen; tr6 09:28 Drug: Lasix (furosemide) 40 mg Route: IVP; Site: left antecubital; tr6 10:04 Drug: cloNIDine 0.1 mg Route: PO; tr6 12:00 Drug: Ativan (LORazepam) 0.5 mg Route: IVP; Site: left antecubital; tr6 14:40 Drug: cloNIDine 0.1 mg Route: PO; tr6 Outcome: 09:02 Decision to Hospitalize by Provider. cp 12:13 Admitted to tr6 12:13 Condition: stable 12:13 Instructed on the need for admit. 21:35 Admitted to Tele accompanied by tech, room 202, with chart, Report called to Monik ruff 21:40 Patient left the ED. ea Signatures: Dispatcher [employer] EDMS Sera Odell Brenda, RN RN Bear Altamirano em1 Thor Chandler PA PA Irene Lambert, EMILY RN Vane Camargo RN EMILY tr6
--- NOTE | 2021-05-07 09:03 | EDPHYS ---
Physician Documentation [facility] Name: Zafar Short Age: 89 yrs Sex: Female : 1930 Arrival Date: 05/07/2021 Time: 06:09 Bed 8 Private MD: ED Physician Charlie Gordon HPI: 05/07 07:25 This 89 yrs old Female presents to ER via EMS with complaints of Breathing cp Difficulty. 07:25 The patient has shortness of breath at rest. Onset: The symptoms/episode began/occurred cp 2 day(s) ago. Duration: The symptoms are continuous. Associated signs and symptoms: Pertinent negatives: chest pain, productive cough, diaphoresis, fever, vomiting. 07:25 Severity of symptoms: in the emergency department the symptoms are unchanged despite cp home interventions. Historical: - Allergies: 06:11 Codeine; bb 06:11 PENICILLINS; bb 06:11 Sulfa (Sulfonamide Antibiotics); bb - PMHx: 06:11 Anemia; chronic kidney disease; Diabetes - NIDDM; Hypertension; Pulmonary embolisim; bb COPD; - Immunization history:: Adult Immunizations up to date. - Social history:: Smoking status: Patient/guardian denies using tobacco. ROS: 07:30 Constitutional: Negative for body aches, chills, fever, poor PO intake. cp 07:30 Eyes: Negative for injury, pain, redness, and discharge. cp 07:30 ENT: Negative for ear pain, sore throat, difficulty swallowing, difficulty handling secretions. 07:30 Cardiovascular: Positive for edema, Negative for chest pain. 07:30 Respiratory: Positive for shortness of breath, at rest. Negative for wheezing. 07:30 Abdomen/GI: Negative for abdominal pain, nausea, vomiting, and diarrhea. 07:30 Back: Negative for radiated pain. 07:30 Skin: Negative for cellulitis, rash. 07:30 Neuro: Negative for altered mental status, headache, weakness. 07:30 All other systems are negative. Exam: 07:33 Constitutional: The patient appears in no acute distress, alert, awake, cp non-diaphoretic, non-toxic, well developed, well nourished. 07:33 Head/Face: Normocephalic, atraumatic. cp 07:33 Eyes: Periorbital structures: appear normal, Pupils: equal, round, and reactive to light and accomodation, Extraocular movements: intact throughout, Conjunctiva: normal, no exudate, no injection, Sclera: no appreciated abnormality, Lids and lashes: appear normal, bilaterally. 07:33 ENT: External ear(s): are unremarkable, Nose: is normal, Mouth: Lips: moist, Oral mucosa: moist, Posterior pharynx: Airway: no evidence of obstruction, patent. 07:33 Neck: ROM/movement: is normal, is supple, without pain, no range of motions limitations. 07:33 Chest/axilla: Inspection: normal, Palpation: is normal, no crepitus, no tenderness. cp 07:33 Cardiovascular: Rate: normal, Rhythm: irregular, Edema: ankle edema, that is moderate, cp JVD: is not appreciated. 07:33 Respiratory: mild respiratory distress is noted, Respirations: labored breathing, that is mild, Breath sounds: decreased breath sounds, that are mild, throughout, rhonchi, are not appreciated, stridor, is not appreciated, wheezing: is not appreciated. 07:33 Abdomen/GI: Inspection: abdomen appears normal, Bowel sounds: active, all quadrants, Palpation: abdomen is soft and non-tender, in all quadrants. 07:33 Skin: cellulitis, is not appreciated, no rash present. 07:33 Neuro: Orientation: to person, place \T\ time. Mentation: is normal, Motor: moves all fours, strength is normal. 07:57 ECG was reviewed by the Attending Physician. cp Vital Signs: 06:09 BP 200 / 87; Pulse 83; Resp 20 S; Temp 98.4(TE); Pulse Ox 100% on 2 lpm NC; Weight bb 61.23 kg (R); Height 5 ft. 4 in. (162.56 cm) (R); Pain 0/10; 08:10 BP 233 / 96; Pulse 77; Resp 20; Pulse Ox 100% on R/A; tr6 10:00 BP 198 / 84; Pulse 78; Resp 20; Pulse Ox 98% on R/A; tr6 11:00 BP 184 / 69; Pulse 76; Resp 20; Pulse Ox 98% on R/A; tr6 12:00 BP 196 / 78; Pulse 79; Resp 18; Pulse Ox 100% on 2 lpm NC; tr6 13:00 BP 186 / 71; Pulse 77; Resp 20; Pulse Ox 100% on 2 lpm NC; tr6 14:24 BP 180 / 72; Pulse 75; Resp 18; Pulse Ox 100% on 2 lpm NC; tr6 06:09 Body Mass Index 23.17 (61.23 kg, 162.56 cm) bb MDM: 07:21 Patient medically screened. cp 08:00 Differential diagnosis: CHF exacerbation, Chronic Obstructive Pulmonary Disease cp Myocardial Infarction pneumonia, Pneumothorax pulmonary edema, Pulmonary Embolism Sepsis Unstable Angina. 09:15 Data reviewed: vital signs, nurses notes, lab test result(s), EKG, radiologic studies, cp plain films. 09:15 Test interpretation: by ED physician or midlevel provider: ECG, plain radiologic cp studies. Counseling: I had a detailed discussion with the patient and/or guardian regarding: the historical points, exam findings, and any diagnostic results supporting the discharge/admit diagnosis, lab results, radiology results, the need for further work-up and treatment in the hospital. Physician consultation: was contacted at 09:00, AZIZA Madden hospitalist will accept patient. 05/07 07:21 Order name: Basic Metabolic Panel cp 05/07 07:21 Order name: CBC with Diff cp 05/07 07:21 Order name: LFT's cp 05/07 07:21 Order name: Magnesium cp 08 07:21 Order name: NT PRO-BNP cp 08 07:21 Order name: PT-INR; Complete Time: 07:50 cp 05/07 07:21 Order name: Troponin (emerg Dept Use Only); Complete Time: 08:34 cp 05/07 08:35 Interpretation: Abnormal: TROPED 0.22. cp 05/07 07:21 Order name: Urine Microscopic Only; Complete Time: 08:25 cp / 08:25 Interpretation: Normal except: SQEPI 5-10. cp 05/07 07:21 Order name: Influenza Screen (a \T\ B); Complete Time: 08:25 cp 05/07 07:22 Order name: Basic Metabolic Panel; Complete Time: 08:34 EDMS 08 08:36 Interpretation: Normal except: GLUC 149; BUN 104; CRE 5.87; CA 10.4; GFR 7. cp 05/07 07:22 Order name: CBC with Automated Diff; Complete Time: 07:50 EDMS 05/07 08:35 Interpretation: Normal except: RBC 3.22; HGB 9.9; HCT 29.1; RDW 15.9; LYM% 6.3; LYMA cp 0.5; YANNA% 84.1. 05/07 07:22 Order name: Liver (Hepatic) Function; Complete Time: 08:34 EDMS 05/07 07:22 Order name: Magnesium; Complete Time: 08:34 EDMS 05/07 07:21 Order name: XRAY Chest (1 view); Complete Time: 09:12 cp 05/07 07:22 Order name: NT PRO-BNP; Complete Time: 08:34 EDMS 05/07 08:36 Interpretation: Abnormal: NT PRO-BNP 88281. cp 05/07 07:43 Order name: Urine Dipstick-Ancillary; Complete Time: 07:50 EDMS 05/07 08:51 Order name: SARS-COV-2 RT PCR; Complete Time: 09:12 EDMS 05/07 13:33 Order name: CBC with Automated Diff EDMS 05/07 14:00 Order name: Basic Metabolic Panel EDMS 05/07 14:00 Order name: Phosphorus EDMS 05/07 14:00 Order name: Magnesium EDMS 05/07 14:02 Order name: Troponin I EDMS 05/07 18:45 Order name: Glucose, Ancillary Testing EDMS 05/07 18:51 Order name: Troponin I EDMS 05/07 19:15 Order name: Glucose, Ancillary Testing EDMS 05/07 07:21 Order name: EKG; Complete Time: 07:22 cp 05/07 07:21 Order name: Cardiac monitoring; Complete Time: 07:54 cp 05/07 07:21 Order name: EKG - Nurse/Tech; Complete Time: 07:54 cp 05/07 07:21 Order name: IV Saline Lock; Complete Time: 07:58 cp 05/07 07:21 Order name: Labs collected and sent; Complete Time: 07:58 cp 05/07 07:21 Order name: O2 Per Protocol; Complete Time: 07:54 cp 05/07 07:21 Order name: O2 Sat Monitoring; Complete Time: 07:54 cp 05/07 07:21 Order name: Urine Dipstick-Ancillary (obtain specimen); Complete Time: 07:54 cp 05/07 08:41 Order name: Stauffer; Complete Time: 09:56 cp EC:57 Rate is 85 beats/min. Rhythm is irregular. QRS interval is prolonged at 136 msec. QT cp interval is normal. T waves are Inverted in leads I, aVL, aVR, V2, V3. Interpreted by me. Reviewed by me. Administered Medications: 08:09 Drug: Lopressor (metoprolol) 5 mg Route: IVP; Site: left antecubital; tr6 08:09 Drug: Lopressor (metoprolol TARTRATE) 50 mg Route: PO; tr6 09:19 CANCELLED (Physician Discretion): hydrALAZINE 10 mg IVP once cp 09:28 Drug: Aspirin Chewable Tablet 324 mg Route: PO; tr6 09:28 Drug: Lovenox (enoxaparin) 1 mg/kg Route: Sub-Q; Site: abdomen; tr6 09:28 Drug: Lasix (furosemide) 40 mg Route: IVP; Site: left antecubital; tr6 10:04 Drug: cloNIDine 0.1 mg Route: PO; tr6 12:00 Drug: Ativan (LORazepam) 0.5 mg Route: IVP; Site: left antecubital; tr6 14:40 Drug: cloNIDine 0.1 mg Route: PO; tr6 Disposition Summary: 05/07/21 09:02 Hospitalization Ordered Hospitalization Status: Inpatient Admission cp Provider: Aakash Herrera cp Condition: Fair cp Problem: new cp Symptoms: have improved cp Bed/Room Type: Standard cp Location: Telemetry/MedSurg (Inpatient)(05/07/21 19:38) dw Room Assignment: (05/07/21 21:01) bb Diagnosis - Unspecified atrial fibrillation cp - Unspecified combined systolic (congestive) and diastolic (congestive) heart failure cp - Acute kidney failure, unspecified cp Forms: - Medication Reconciliation Form cp - SBAR form cp Addendum: 05/09/2021 19:08 Co-signature as Attending Physician, Charlie cid Signatures: Dispatcher [employer] EDMS Sera Odell Diana, RN RN dw Lam, Pin, MD MD pkl Ballard, Brenda, RN RN Wendie Thakkar RN RN iw Page, Corey, PA PA Vane Branham RN RN tr6 Corrections: (The following items were deleted from the chart) 05/07 07:51 07:22 CORONAVIRUS+MRJOSEF.BRZ ordered. EDMS EDMS 07:52 07:52 Normal except: RBC 3.22; HGB 9.9; HCT 29.1; RDW 15.9. cp cp 08:26 07:52 Normal except: RBC 3.22; HGB 9.9; HCT 29.1; RDW 15.9; LYM% 6.3. cp cp 08:35 08:25 Normal except: RBC 3.22; HGB 9.9; HCT 29.1; RDW 15.9; LYM% 6.3; LYMA 0.5. cp cp 08:36 08:35 Normal except: GLUC 149; BUN 104; CRE 5.87. cp cp 08:36 08:35 Normal except: GLUC 149; BUN 104; CRE 5.87; CA 10.4. cp cp 09:19 08:56 hydrALAZINE 10 mg IVP once ordered. cp cp 17:39 09:02 Telemetry/MedSurg (Inpatient) cp bd 17:39 09:02 cp bd 19:38 17:39 [facility] ER HOLD bd dw 19:38 17:39 ERHOLD- bd dw 21:01 19:38 bb
--- NOTE | 2021-05-07 09:08 | RAD REPORT ---
EXAM DESCRIPTION: RAD - Chest Single View - 05/07/2021 7:57 am CLINICAL HISTORY: SOB COMPARISON: March 2017 chest exam TECHNIQUE: AP portable chest image was obtained 05/07/2021 7:57 am . FINDINGS: No dense consolidation. Interstitial opacification has increased since prior imaging parti cularly in the lower right lung field. Cardiomegaly is present with vasculature not substantially dif ferent from comparison. No measurable pleural effusion and no pneumothorax. No acute bony abnormality seen. No acute aortic findings suspected. IMPRESSION: Increased lung base opacification, left greater than right. This could be progressive fi brosis from 2017, interstitial edema or interstitial infiltrate. Cardiomegaly is present progressive from 2017 with no significant vascular engorgement.
[2021-05-07] MEDS ORDERED: FUROSEMIDE 40 MG/4 ML VIAL ONE ×2 (09:43→18:35)
[2021-05-07] MEDS ORDERED: ASPIRIN 81 MG CHEWABLE TABLET ONE (09:43)
[2021-05-07] MEDS ORDERED: ENOXAPARIN 60 MG/0.6 ML SQ ONE (09:43)
[2021-05-07] MEDS ORDERED: cloNIDine HCL 0.1 MG TAB ONE (10:23)
[2021-05-07] MEDS ORDERED: ALBUTEROL 2.5 MG/3 ML NEB SOL NEB PRN (10:49)
[2021-05-07] MEDS ORDERED: ACETAMINOPHEN 500 MG TAB PO PRN (10:49)
[2021-05-07] MEDS ORDERED: ONDANSETRON 4 MG/2 ML VIAL IV PRN (10:49)
--- NOTE | 2021-05-07 11:13 | P.HP ---
Certification for Inpatient With expected LOS: >2 Midnights Patient will require the following post-hospital care: None Practitioner: I am a practitioner with admitting privileges, knowledge of patient current condition, hospital course, and medical plan of care. Services: Services provided to patient in accordance with Admission requirements found in Title 42 Section 412.3 of the Code of Federal Regulations Patient History Date of Service: 05/07/21 Reason for admission: SOB History of Present Illness: Pt is an 89 year old female with a PMHx significant for Anemia; chronic kidney disease; Diabetes - NIDDM; Hypertension; Pulmonary embolisim; COPD who presents with c\o of shortness of breath that has been ongoing for the past 4 days. Patient reported associated s\s of cough, orthopnea and generalized itching. Patient denies any other s\s. Symptoms are aggravated by or relieved by nothing. Patient decided to present to the hospital for due to worsening symptoms Allergies codeine Allergy (Verified 01/30/15 20:34) Rash Penicillins Allergy (Verified 01/30/15 20:34) Rash propoxyphene HCl [From Darvon] Allergy (Verified 01/30/15 20:34) Rash Sulfa (Sulfonamide Antibiotics) Allergy (Verified 01/30/15 20:34) Rash Home medications list reviewed: Yes Home Medications: Cyanocobalamin [Vitamin B-12*] 1,000 mcg PO DAILY 01/30/15 Fluoxetine HCl [Prozac] 20 mg PO DAILY 01/30/15 Glipizide [Glipizide ER] 10 mg PO DAILY 01/30/15 Hydralazine [Apresoline*] 100 mg PO TID 01/30/15 Sitagliptin Phosphate [Januvia] 25 mg PO BIDWM 01/30/15 carvediloL [Coreg*] 25 mg PO DAILY 01/30/15 Tiotropium [Spiriva Handihaler*] 1 sprays IH DAILY #1 inh 02/08/15 Omeprazole [Prilosec] 40 mg PO DAILY #30 capsule. 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 -: fecal impaction -: urinary retention -: rotator cuff -: hyst -: appy -: rafal -: back sx 1987 -: R knee replaement -: R hand surgery -: R rotator cuff sx - Family History Father -: Stroke Mother -: Hypertension, Cancer Sister -: Hypertension, Diabetes, Cancer - Social History Smoking Status: Never smoker Alcohol use: No CD- Drugs: No Caffeine use: Yes Place of Residence: Home Review of Systems General: Unremarkable Eyes: Unremarkable ENT: Unremarkable Respiratory: Cough, Shortness of Breath, SOB with Excertion, Other (Congestion) Cardiovascular: Orthopnea Gastrointestinal: Unremarkable Genitourinary: Unremarkable Musculoskeletal: Unremarkable Integumentary: Other (generalized itching. ) Neurological: Weakness Lymphatics: Unremarkable Physical Examination - Physical Exam General: Alert, In no apparent distress, Oriented x3, Moderate distress HEENT: Atraumatic, PERRLA, Mucous membr. moist/pink, EOMI, Sclerae nonicteric Neck: Supple, 2+ carotid pulse no bruit, No LAD, Without JVD or thyroid abnormality Respiratory: Normal air movement, Diminished, Expiratory wheezes Cardiovascular: No edema, Normal S1 S2, Irregular heart rate/rhythm Capillary refill: <2 Seconds Gastrointestinal: Normal bowel sounds, Soft and benign, No tenderness Musculoskeletal: No clubbing, No tenderness Integumentary: No rashes Neurological: Normal gait, Normal speech, Normal tone, Normal affect Lymphatics: No axilla or inguinal lymphadenopathy External genitalia: Deferred Rectal: Deferred - Studies Laboratory Data (last 24 hrs) 05/07/21 07:24: PT 11.8, INR 1.03 05/07/21 07:24: WBC 7.90, Hgb 9.9 L, Hct 29.1 L, Plt Count 224 05/07/21 07:24: Sodium 139, Potassium 4.0, BUN 104 H, Creatinine 5.87 H*, Glucose 149 H, Magnesium 3.0 H, Total Bilirubin 0.5, AST 28, ALT 30, Alkaline Phosphatase 36 L Microbiology Data (last 24 hrs): 05/07/21 07:24 Nasopharnyx Influenza Type A Antigen Screen - Final 05/07/21 07:24 Nasopharnyx Influenza Type B Antigen Screen - Final Assessment and Plan - Plan --Acute on chronic systolic or diastolic CHF exacerbation. [place] @ [address]. Continue diuresis with Lasix. Supervisor Rubber Covering consulted. Echo cardiogram pending. Daily weight and strict I\O. Will await further recommendations from manager internal. --New onset Afib. Patient placed on Eliquis. Telemetry to monitor for any significant arrhythmia. . Further mgt per manager internal --Elevated troponin. Likely due to demand ischemia. Supervisor Rubber Covering on board. Echo pending. Will trend troponin levels. Telemetry. Further mgt per manager internal --CKD 5. Patient continues to refuse dialysis. Store Cashier consulted. Further mgt per cleaner industrial. --Hx of PE. Continue Eliquis --Acute on chronic COPD exacerbation. Continue O2 therapy, steroid and Neb Tx with Atrovent and Albuterol --Generalized itching. Benadryl prn --Hypertensive Emergency. Continue home medications and hydralazine prn. Further mgt per manager internal --GERD. Continue protonix --Depression. Continue home medications. --Anemia of chronic disease. Will continue to monitor H\H and transfuse if hemoglobin is less than 7.0 --DVT prophylaxis with Eliquis Documentation of Current Medications in the Medical Record - 18+ years old: Code: G8427 - current medications obtained, updated, or reviewed. Pain Assessment and Follow-Up - 18+ years old: Code: G8730 - pain assessment positive with standardized tool AND a follow up plan is documented. I have had discussion about advanced directives with the patient and /or family during this hospital admission. Addressed code status and /or goals of care. Spent more than 15 minutes. Case discussed with patient and nurse. Discharge Plan: Home Plan to discharge in: Greater than 2 days - Advance Directives Does patient have a Living Will: No Does patient have a Durable POA for Healthcare: No - Code Status/Comfort Care Code Status Assessed: Yes Code Status: Full Code Physician Review: Patient Assessed, Agree with Above Assessment and Plan Critical Care: No
[2021-05-07] MEDS ORDERED: LORazepam 2 MG/ML VIAL ONE (12:08)
[2021-05-07 13:28] LABS: Absolute Lymphocytes (CBC) 0.4 K/uL (0.7-4.9); Hematocrit 26.1 % (36.0-45.0); Lymphocytes % 6.3 % (15.3-44.8); MPV 9.5 fL (7.6-11.3); RBC Red Blood Cell Count 2.89 M/uL (3.86-4.86)
[2021-05-07 13:59] LABS: Phosphorus 8.2 mg/dL (2.5-4.9); Potassium 3.9 mmol/L (3.5-5.1)
--- NOTE | 2021-05-07 14:57 | CON ---
Date of Consultation: 05/07/2021 The patient is seen in emergency room HOLD8, Room 8 History Of Present Illness: The patient presented to the hospital with feeling shortness of breath. X-ray shows some fluid in the lungs. Swelling in the lower extremities was evident on physical exam . The patient has had significant renal failure with CKD, stage 5. Her creatinine has been in the 5 range as recently as March of this year. The patient has been followed by Dr. Oswald and has had mu ltiple discussions with him regarding dialysis and has chosen not to get dialysis. Her is aw are of this also and also her granddaughter is aware of that. I spoke with the granddaughter today a nd also with the . The patient had gotten 0.5 mg of Ativan as she was very agitated and was u ncomfortable when she came in and was getting very anxious and currently she is sleeping comfortably. Vitals are stable. The patient is unable to answer any questions and she is quite lethargic. This partly could be from the uremia from her advanced kidney disease, but also could be from the Ativan that she recently received. I did confirm with her and also with her granddaughter that the patient's wishes were not to be dialyzed even if this would cause her to and she was as the grand daughter reported ready to meet her Creator and did not want dialysis. They will consider hospice if the patient's condition continues to stay guarded. I suggested that when the patient's Ativan weans off and she is more awake and alert to discuss plan with them assuming she gets to that position. H opefully, the and the granddaughter can again have a communication with her, asking her if damaris davis still wants to stay away from dialysis and if she would be interested in that scenario to consider hospice to help her with her breathing to help her with her discomfort as the renal function worsenin g progresses. The patient currently looks stable. Past Medical History: Significant for diabetes, for hypertension, for CKD stage 5. She has had a pu lmonary embolism. She has had a Vinny filter placed in the past. She has had a history of depr ession. Family History: Noncontributory. Medications: In the chart reviewed. The patient has been on hydralazine. She has been on carvedilo l. She has been on clonidine and lisinopril for blood pressure control. She has been on Prozac in t he past. Past Surgical History: She has a surgical history of rotator cuff. She has had cholecystectomy. Damaris davis has had right knee replacement and rotator cuff surgery. Social History: Lives with her . She does not drink alcohol in excess, use any drugs or smok e cigarettes. Allergies: TO CODEINE, PENICILLIN, PROPOXYPHENE, AND SULFA DRUGS. Laboratory Data: Shows WBC count of 7.9, hemoglobin 9.9, hematocrit 29.1, platelet count of 224. Ch emistry shows sodium 139, potassium 4.0, chloride 103, bicarb is 25, BUN is 104, creatinine of 5.87, estimated GFR based on the BUN and creatinine is around 7 mL per minute, magnesium at 3, alkaline celi sphatase at 36. ProBNP at 64,107, albumin at 3.2. Urine showed positive 3 proteinuria. Physical Examination: Vital Signs: The patient's vitals were stable. O2 sats 98% on room air. Lungs: Her lungs do reveal few crackles at the very bases. Abdomen: Soft. Extremities: Reveal positive edema. Heart: Sounds are irregularly irregular. Current Medications: Include hydrocodone 1 tablet q.6 hours p.r.n., Eliquis 2.5 mg p.o. b.i.d., Lasi x 40 mg IV b.i.d. She has gotten 1 dose and has had a good response with 500 mL of urine in the Fole y bag. Zofran p.r.n. and albuterol nebulizer treatments as needed. Assessment And Plan: The patient with significant kidney failure with stage 5 kidney disease, now pr esents with uremic symptoms. She is in guarded condition with difficulty with breathing; however, br eathing has stabilized with her O2 sats in mid 90s on room air. Currently, she has had 40 mg of IV L asix with about 500 mL of urine that seems clear in the Stauffer bag. At this point, the patient will b e continued on 40 mg IV b.i.d. Lasix. Her vitals seem stable. Her potassium is okay. Her bicarb is reasonable. I have discussed the patient's condition with her and also with the patient's g randdaughter, who were in the emergency room with her and they both are in agreement that dialysis sh ould be held. They understand that the patient may pass away without getting dialysis and her condit ion is critical. They will monitor her closely while she is in the hospital and if she starts waking up once her medications wean off, they will see if there is an opportunity to discuss this with her again to see if the patient would be interested in dialysis, but as of now, the patient has been very clear with her wishes that she would not want dialysis even if this meant that she would if she does not agree to dialysis. Her condition continues to stay with uremia and shortness of breath, we would recommend a hospice for her and the family is agreeable to consider this. This option has been presented to them and I have discussed this with them. The patient's lab work shows the BUN and cre atinine at 104 and 5.87. /CITLALY Voice ID: [id number] Report ID: [id number]
[2021-05-07] MEDS ORDERED: GLUCAGON 1 MG/VIAL IM PRN (16:26)
[2021-05-07] MEDS ORDERED: D50W 25 GM/50 ML SYRINGE IV PRN (16:26)
[2021-05-07] MEDS: FUROSEMIDE 40 MG/4 ML VIAL IV SCH (17:00)
[2021-05-07] MEDS: METHYLPREDNISOLONE 40 MG INJ IV SCH (17:00)
[2021-05-07] MEDS: INSULIN -REGULAR HUMAN 50 UNIT/0.5 ML ML SQ SCH ×2 (18:33→22:30)
[2021-05-07] MEDS ORDERED: D50W 50 ML IV ONE (18:58)
[2021-05-07] MEDS: ALBUTEROL 2.5 MG/3 ML NEB SOL NEB SCH (19:40)
[2021-05-07] MEDS: IPRATROPIUM BROM 0.5MG/2.5ML NEB SCH (19:40)
--- NOTE | 2021-05-07 19:48 | CON ---
Date of Consultation: 05/07/2021 Reason For Consultation: Shortness of breath. History Of Present Illness: This is an 89-year-old female with history of hypertension, advanced kid marlene disease, history of diabetes, anemia, pulmonary embolism, presented with worsening shortness of b reath that has been going on for few days along with lower extremity edema. The patient has advanced kidney disease and she would not consent for dialysis. Apparently, she had a coronary angiogram in 2014, which did not show any significant coronary artery disease. So by bedside, she is lethargic, u nable to answer questions properly. Past Medical History: As outlined above in the HPI. Medications: Refer to reconciliation sheet for detailed list. Allergies: CODEINE, PENICILLIN, PROPOXYPHENE, SULFA. Family History: No premature coronary artery disease or cancer. Social History: Does not smoke or drink. Does not use any drugs. Review of Systems: All systems reviewed and they were negative except what mentioned in the HPI. Physical Examination: Vital Signs: Reviewed. Head and Neck: Pupils are equal, reactive to light. Intact eye movements. No JVD. No cervical lym phadenopathy. Neck: Supple. Thyroid is not enlarged. Lungs: Decreased breathing sounds bilaterally with faint crackles in bases. No accessory muscle use or muscle retraction. Heart: Irregular. No extra sounds. Abdomen: Soft, nontender. Bowel sounds positive. No organomegaly. No masses or hernia. No rigidi ty or rebound. Extremities: No clubbing, cyanosis. Intact pulses. Skin: No rashes. Neurologic: Lethargic, but moving all extremities. Lymph Nodes: No cervical or axillary lymphadenopathy. Investigations: Creatinine 5.89 with a BUN of 107. Troponin 0.22 and then 0.19. NT-proBNP is 64,00 0. The chest x-ray suggestive of pulmonary edema. Assessment And Recommendations: 1.Pulmonary edema because of significant fluid retention likely causing her symptoms. The patient h ad a left heart catheterization in 2014 with no coronary artery disease. This fluid retention seems likely due to advanced kidney failure. Agree with proceeding with dialysis. Discussed with her husb and who claimed that she has been refusing. The patient is being evaluated by Nephrology. 2.Elevated troponin. This is likely due to demand plus the fluid overload condition and congestive heart failure. Please obtain echocardiogram and definitive management would be fluid management of d ialysis. Thank you for the consult. SR/MODL Voice ID: [id number] Report ID: [id number]
[2021-05-07] MEDS ORDERED: IPRATROPIUM BROM 0.5MG/2.5ML ONE (19:57)
[2021-05-07] MEDS ORDERED: ALBUTEROL 2.5 MG/3 ML NEB SOL ONE (19:57)
[2021-05-07] MEDS: APIXABAN 2.5 MG TABLET PO SCH (21:00)
[2021-05-07] MEDS ORDERED: HEPARIN 5000 UNIT/ML 1 ML VIAL IV SCH (21:00)
[2021-05-08] MEDS: METHYLPREDNISOLONE 40 MG INJ IV SCH ×2 (01:35→08:31)
[2021-05-08] MEDS: ALBUTEROL 2.5 MG/3 ML NEB SOL NEB SCH ×2 (02:40→07:53)
[2021-05-08] MEDS: IPRATROPIUM BROM 0.5MG/2.5ML NEB SCH ×4 (02:40→20:05)
[2021-05-08 06:16] LABS: Absolute Lymphocytes (CBC) 0.2 K/uL (0.7-4.9); Basophils % 0.2 % (0-1.3); Hematocrit 26.4 % (36.0-45.0); Lymphocytes % 4.6 % (15.3-44.8); MPV 10.1 fL (7.6-11.3); RBC Red Blood Cell Count 2.92 M/uL (3.86-4.86)
[2021-05-08 06:29] LABS: Magnesium 2.9 mg/dL (1.8-2.4); Potassium 4.3 mmol/L (3.5-5.1)
[2021-05-08 08:13] LABS: Blood Morphology Comment NOTED (NOT SEEN); Platelet Estimate ADEQ; White Blood Cell Scan OK (OK)
--- NOTE | 2021-05-08 08:23 | P.PN ---
Subjective Date of Service: 05/08/21 Chief Complaint: SOB Subjective: Improving (slightly better - breathing more comfortably, but still feels bad. on 2L NC, no chest pain/pressure.) Review of Systems 10-point ROS is otherwise unremarkable Physical Examination - Vital Signs Temperature: 98.4 F Blood Pressure: 169/78 Pulse: 96 Respirations: 18 - Studies Laboratory Data (last 24 hrs) 05/07/21 07:24: Sodium 139, Potassium 4.0, BUN 104 H, Creatinine 5.87 H*, Glucose 149 H, Magnesium 3.0 H, Total Bilirubin 0.5, AST 28, ALT 30, Alkaline Phosphatase 36 L Microbiology Data (last 24 hrs): 05/07/21 07:24 Nasopharnyx Influenza Type A Antigen Screen - Final 05/07/21 07:24 Nasopharnyx Influenza Type B Antigen Screen - Final Assessment & Plan Physician Review Additional Text: Physical Exam: Gen: NAD, AAOx3 HEENT: normal conjunctiva, sclera anicteric CV: irregularly irregular rhythm, no murmur Pulm: crackles b/l bases, nonlabored on 2-3L NC Abd: soft, nontender, nondistended Skin: no rash Neuro: moves all extremities Problem List Acute hypoxic respiratory failure secondary to acute on chronic CHF exacerbation, unknown type Acute on chronic COPD exacerbation New onset A. fib NSTEMI, likely demand ischemia CKD 5 History of PE Hypertension GERD Depression DM2, non-insulin dependent Anemia of chronic disease -cardiology and nephrology consulted. echo done 05/08 - pending results -continue lasix, making urine -edema improving, pt feels she is breathing more comfortably but still having SOB -change solumedrol to prednisone for acute on chronic COPD exacerbation -pt now considering hemodialysis, was refusing earlier; states will discuss with family and have answer later today -continue eliquis -wean O2 -continue home medications - anti-hypertensives, coreg -general surgery consult / HD tomorrow if patient is agreeable -insulin sliding scale, may need long acting - having steroid induced hyperglycemia VTE: eliquis Code: full Dispo: considering dialysis, anticipate hospitalization > 2days, will send hepatitis panel in case she wants to proceed with dialsysis. Time Spent Managing Pts Care (In Minutes): 40
[2021-05-08] MEDS: APIXABAN 2.5 MG TABLET PO SCH ×2 (08:30→21:33)
[2021-05-08] MEDS: FUROSEMIDE 40 MG/4 ML VIAL IV SCH ×2 (08:30→16:45)
[2021-05-08] MEDS: INSULIN -REGULAR HUMAN 50 UNIT/0.5 ML ML SQ SCH ×4 (08:31→21:00)
[2021-05-08] MEDS ORDERED: AMLODIPINE 2.5 MG TAB PO ONE (10:47)
--- NOTE | 2021-05-08 11:20 | EKG ---
Test Date: 2021-05-07 Test Time: 13:21:24 Building Construction Superintendent: MIKHAIL MEASUREMENT RESULTS: Intervals: Rate: 72 LA: QRSD: 152 QT: 460 QTc: 503 Edmonds: P: LA: QRS: -75 T: 101 INTERPRETIVE STATEMENTS: Atrial fibrillation with premature ventricular or aberrantly conducted complexes Right bundle branch block Left anterior fascicular block Bifascicular block Minimal voltage criteria for LVH, may be normal variant Septal infarct, age undetermined T wave abnormality, consider inferolateral ischemia or digitalis effect Abnormal ECG Compared to ECG 05/07/2021 07:51:54 Ventricular premature complex(es) now present Myocardial infarct finding now present Bifascicular block still present T-wave abnormality still present Possible ischemia still present Electronically Signed On 05-08-21 11:16:34 CDT by Elías Goldberg
--- NOTE | 2021-05-08 11:58 | PN ---
Subjective: She is now in room 202, on second floor, seen at [facility]. The patient is more alert today as her lorazepam has weaned off. She is still feeling ill. She has poo r appetite. She is feeling tired and weak. She still has to take some time to think as her mentatio n is somewhat improved, but still not clear. She understands that if she does not get dialysis, she may not make it through for too long given her advanced renal disease and need for dialysis, perhaps urgently. 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 She understands her condition and answers questions well. Her is by the bedside. Her O2 sats have improved in the mid 90 range. She is requiring ab out 2 L of nasal cannula to keep her comfortable. She still has some mild shortness of breath on carlos wilmer. She still has some crackles on her lower part of her lungs and also has edema in her lower ext remities. The patient denies any pain currently. She states that she is reconsidering a decision to not get dialysis. She will let us know if she changes her mind. She understands that she can start dialysis and stop it at any time if she does not want to continue. Objective: VITAL SIGNS: On examination; last blood pressure is 169/78, pulse is about 70 to 100 and in regular range, respirations are around 18, O2 sats are 98% on 2 L nasal cannula. Lungs: Clear with decreased breath sounds and few crackles at the bases. Abdomen: Soft. Extremities: Reveal positive 1 edema. In's and out's; the patient has had reasonable urine output about 500 mL overnight. Laboratory Data: Reviewed. WBC 4.6, hemoglobin 8.7, hematocrit 26.4, platelet count of 210. Chemis try shows sodium 141, potassium 4.3, chloride 105, bicarb is 21, BUN is 113, creatinine is 6.0, gluco se is 188. Troponin was 0.17 and proBNP is 81,302. Assessment And Plan: Congestive heart failure and volume overload in the setting of advanced renal d isease. The patient seems more alert today. Her breathing is relatively stable. Potassium and bica rb are okay. BUN and creatinine are worsen. The patient's volume status still seems overloaded. We will continue Lasix at 40 mg IV b.i.d. We will start the patient on low dose of amlodipine and adju st up as needed, as tolerated. The patient has not been eating and drinking that well. Understands that if she does not get dialysis, she may not be able to survive. The patient is considering dialys is and will let us know if she decides on getting it. If the patient decides on dialysis, we will ke ep her n.p.o. tonight with plan to get a dialysis catheter tomorrow morning with initiation of dialys is with 2 hours of first treatment tomorrow. I have discussed this with the patient and also with [facility] charge nurse at the second floor. I have also given my cell number to the family so they can call me or let the nurse know in case the patient wants to consider dialysis initiation and would like to get a catheter scheduled for tomorrow morning. /CITLALY Voice ID: [id number] Report ID: [id number]
[2021-05-08] MEDS ORDERED: LEVALBUTEROL 0.63 MG/3 ML NEB NEB PRN (13:06)
[2021-05-08] MEDS: carvediloL 25 MG TAB PO SCH (13:45)
[2021-05-08] MEDS: HYDRALAZINE HCL 20 MG/ML VIAL IV PRN (16:45)
[2021-05-08] MEDS: HYDROCODONE/APAP 5/325 MG TAB PO PRN (17:51)
[2021-05-08] MEDS ORDERED: MELATONIN 5 MG TABLET PO PRN (18:59)
[2021-05-08] MEDS: predniSONE 20 MG TAB PO SCH (21:33)
[2021-05-08] MEDS: GLUCERNA SHAKE 237 ML CAN PO SCH (21:33)
[2021-05-08] MEDS: cloNIDine HCL 0.1 MG TAB PO SCH (21:33)
[2021-05-08 23:03] VITALS: BMI 21.3
[2021-05-09] MEDS: HYDROCODONE/APAP 5/325 MG TAB PO PRN (00:19)
[2021-05-09] MEDS: HYDRALAZINE HCL 20 MG/ML VIAL IV PRN (00:39)
[2021-05-09] MEDS: IPRATROPIUM BROM 0.5MG/2.5ML NEB SCH ×2 (01:45→08:04)
[2021-05-09] MEDS ORDERED: MORPHINE 2 MG/ML SYR IV ONE (02:41)
[2021-05-09 06:10] LABS: Absolute Lymphocytes (CBC) 0.2 K/uL (0.7-4.9); Basophils % 0.3 % (0-1.3); Hematocrit 27.6 % (36.0-45.0); Lymphocytes % 2.4 % (15.3-44.8); MPV 10.1 fL (7.6-11.3); RBC Red Blood Cell Count 3.04 M/uL (3.86-4.86)
[2021-05-09 07:17] LABS: Albumin 2.9 g/dL (3.4-5.0); Potassium 4.1 mmol/L (3.5-5.1)
[2021-05-09 07:25] LABS: Phosphorus 8.6 mg/dL (2.5-4.9)
--- NOTE | 2021-05-09 08:28 | ECHO ---
HEIGHT: 5 ft 6 in WEIGHT: 134 lb 0 oz DATE OF STUDY: 05/08/[address]: Elías Goldberg MD 2-DIMENSIONAL: YES M.MODE: YES DOPPLER: YES COLOR FLOW: YES TDS: PORTABLE: DEFINITY: BUBBLE STUDY: DIAGNOSIS: CONGESTIVE HEART FAILURE CARDIAC HISTORY: CATHERIZATION: SURGERY: PROSTHETIC VALVE: PACEMAKER: MEASUREMENTS (cm) DIASTOLIC (NORMALS) SYSTOLIC (NORMALS) IVSd 1.5 (0.6-1.2) LA Diam 4.4 (1.9-4.0) LVEF 79% LVIDd 4.0 (3.5-5.7) LVIDs 2.1 (2.0-3.5) %FS 48% LVPWd 1.3 (0.6-1.2) Ao Diam 2.5 (2.0-3.7) 2 DIMENSIONAL ASSESSMENT: RIGHT ATRIUM: NORMAL LEFT ATRIUM: DILATED RIGHT VENTRICLE: NORMAL LEFT VENTRICLE: LEFT VENTRICULAR HYPERTROPHY TRICUSPID VALVE: NORMAL MITRAL VALVE: MITRAL ANNULAR CALCIFICATION PULMONIC VALVE: NORMAL AORTIC VALVE: SCLEROSIS PERICARDIAL EFFUSION: NONE AORTIC ROOT: NORMAL LEFT VENTRICULAR WALL MOTION: NORMAL DOPPLER/COLOR FLOW: MILD TRICUSPID REGURGITATION. SEVERE PULMONARY HYPERTENSION COMMENTS: SEVERE PULMONARY HYPERTENSION. RIGHT VENTRICULAR SYSTOLIC PRESSURE > 70 mmHg. MITRAL ANNULAR CALCIFICATION. AORTIC SCLEROSIS. LEFT VENTRICULAR HYPERTROPHY. NORMAL EJECTION FRACTION. TECHNOLOGIST: SHRUTHI PATTON
[2021-05-09] MEDS: INSULIN -REGULAR HUMAN 50 UNIT/0.5 ML ML SQ SCH ×2 (08:48→12:48)
[2021-05-09] MEDS: FUROSEMIDE 40 MG/4 ML VIAL IV SCH (08:49)
[2021-05-09] MEDS: carvediloL 25 MG TAB PO SCH (08:49)
[2021-05-09] MEDS: APIXABAN 2.5 MG TABLET PO SCH (08:50)
[2021-05-09] MEDS: cloNIDine HCL 0.1 MG TAB PO SCH (08:50)
[2021-05-09] MEDS: predniSONE 20 MG TAB PO SCH (08:50)
[2021-05-09] MEDS: GLUCERNA SHAKE 237 ML CAN PO SCH (08:59)
[2021-05-09] MEDS ORDERED: AMLODIPINE 2.5 MG TAB PO SCH (09:00)
[2021-05-09] MEDS ORDERED: FLUOXETINE 20 MG CAP PO SCH (09:00)
--- NOTE | 2021-05-09 09:32 | RAD REPORT ---
EXAM DESCRIPTION: RAD - Chest Single View - 05/09/2021 9:17 am CLINICAL HISTORY: f/u opacities, ?CHF Chest pain. COMPARISON: Chest Single View dated 05/07/2021; Chest Single View dated 03/10/2017; CHEST SINGLE VIEW da berry 03/14/2015; CHEST SINGLE VIEW dated 02/16/2015 FINDINGS: Portable technique limits examination quality. Mild interstitial pulmonary edema is seen. The heart is moderately enlarged in size. Small left pleur al effusion likely present. IMPRESSION: Mild CHF suspected.
[2021-05-09 11:31] VITALS: O2SAT 95
--- NOTE | 2021-05-09 14:34 | P.DS ---
Admission Date: 05/07/21 Discharge Date: 05/09/21 Disposition: ROUTINE DISCHARGE Discharge Condition: FAIR Reason for Admission: SOB Consultations: Cardiology - Dr. Camacho Nephrology - Dr. Goins / Darek Procedures: CXR (05/07): FINDINGS: No dense consolidation. Interstitial opacification has increased since prior imaging particularly in the lower right lung field. Cardiomegaly is present with vasculature not substantially different from comparison. No measurable pleural effusion and no pneumothorax. No acute bony abnormality seen. No acute aortic findings suspected. IMPRESSION: Increased lung base opacification, left greater than right. This could be progressive fibrosis from 2017, interstitial edema or interstitial infiltrate. Cardiomegaly is present progressive from 2017 with no significant vascular engorgement. CXR (05/09): Mild interstitial pulmonary edema is seen. The heart is moderately enlarged in size. Small left pleural effusion likely present. IMPRESSION: Mild CHF suspected. Echo (05/08): Severe pulmonary hypertension. RVSP > 70mmHg. Mitral annular calcification. aortic sclerosis. LVH. normal EF (79%) Problem List Acute hypoxic respiratory failure secondary to acute on chronic diastolic CHF exacerbation Acute on chronic COPD exacerbation New onset A. fib NSTEMI, secondary to demand ischemia CKD 5 Hyperphosphatemia History of PE Hypertension GERD Depression DM2, non-insulin dependent Brief History of Present Illness: 89 year old female with a PMHx significant for Anemia; chronic kidney disease; Diabetes - NIDDM; Hypertension; Pulmonary embolisim; COPD who presents with c\o of shortness of breath that has been ongoing for the past 4 days. Patient reported associated s\s of cough, orthopnea and generalized itching. Patient denies any other s\s. Symptoms are aggravated by or relieved by nothing. Patient decided to present to the hospital for due to worsening symptoms Hospital Course: Patient had improvement of her symptoms with IV diuresis. Echocardiogram was obtained and revealed severe pulmonary hypertension. Nephrology was consulted given her renal function. After much consideration, patient decided against hemodialysis. She opted for continued treatment with medication only. This was discussed at length with her, and it seemed most of what she wanted was in line with hospice, however after discussion with her , she decided not to pursue hospice at this time. They were amenable to home health being set up, and will continue this discussion with their children. She was noted in the ED to have new onset/diagnosis of atrial fibrillation - this remained rate-controlled with her home dose of coreg. The risks vs benefits of anticoagulation were reviewed with the patient. She reported she was previously on anticoagulation for a blood clot in lungs ~6yrs ago. She stated she didn't want to restart on anticoagulation at this time. Vital Signs/Physical Exam: Physical Exam: Gen: NAD, AAOx3 HEENT: normal conjunctiva, sclera anicteric CV: irregularly irregular rhythm, no murmur Pulm: diminished at bases bilaterally, nonlabored on 2-3L NC Abd: soft, nontender, nondistended Skin: no rash Neuro: moves all extremities Temp Pulse Resp BP Pulse Ox 97.0 F 78 17 153/67 H 89 L 05/09/21 12:00 05/09/21 12:00 05/09/21 12:00 05/09/21 12:00 05/09/21 12:00 Laboratory Data at Discharge: WBC 9.80 K/uL (4.3-10.9) D 05/09/21 05:52 Hgb 9.0 g/dL (12.0-15.0) L 05/09/21 05:52 Hct 27.6 % (36.0-45.0) L 05/09/21 05:52 Plt Count 215 K/uL (152-406) 05/09/21 05:52 PT 11.8 SECONDS (9.5-12.5) 05/07/21 07:24 INR 1.03 05/07/21 07:24 Sodium 133 mmol/L (136-145) L 05/09/21 06:24 Potassium 4.1 mmol/L (3.5-5.1) 05/09/21 06:24 BUN 131 mg/dL (7-18) H 05/09/21 06:24 Creatinine 6.01 mg/dL (0.55-1.3) H* 05/09/21 06:24 Glucose 233 mg/dL (74-106) H 05/09/21 06:24 Phosphorus 8.6 mg/dL (2.5-4.9) H* 05/09/21 06:24 Magnesium 2.9 mg/dL (1.8-2.4) H 05/09/21 05:52 Total Bilirubin 0.5 mg/dL (0.2-1.0) 05/07/21 07:24 AST 28 U/L (15-37) 05/07/21 07:24 ALT 30 U/L (12-78) 05/07/21 07:24 Alkaline Phosphatase 36 U/L (45-117) L 05/07/21 07:24 Troponin I 0.17 ng/mL (0.0-0.045) H 05/07/21 22:58 Home Medications: Carvedilol [Coreg] 25 mg PO DAILY 05/08/21 Cholecalciferol (Vitamin D3) [Vitamin D3] 5,000 unit PO DAILY 05/08/21 Cyanocobalamin [Vitamin B-12*] 1,000 mcg PO DAILY 05/08/21 Ferrous Sulfate [Iron] 1 tab PO DAILY 05/08/21 Fluoxetine HCl 20 mg PO DAILY 05/08/21 Glipizide [Glipizide Xl] 10 mg PO DAILY 05/08/21 Sitagliptin Phosphate [Januvia] 25 mg PO BID 05/08/21 cloNIDine HCL [Clonidine HCl] 0.1 mg PO BID 05/08/21 Amlodipine Besylate [Norvasc] 5 mg PO DAILY 30 Days #30 tablet 05/09/21 Furosemide [Lasix] 40 mg PO BID 30 Days #60 tablet 05/09/21 Sevelamer Carbonate [Renvela] 2 tab PO TIDWM 30 Days #180 tablet 05/09/21 predniSONE [Prednisone*] 20 mg PO SEECOM 7 Days #10 tab 05/09/21 New Medications: Furosemide [Lasix] 40 mg PO BID 30 Days #60 tablet Amlodipine Besylate [Norvasc] 5 mg PO DAILY 30 Days #30 tablet predniSONE [Prednisone*] 20 mg PO SEECOM 7 Days #10 tab Sevelamer Carbonate [Renvela] 2 tab PO TIDWM 30 Days #180 tablet Physician Discharge Instructions: PROBLEM: CHF exacerbation, End-stage kidney disease GOAL: Clear understanding of disease process E-scripts sent to [facility] in [place]. INSTRUCTIONS: You were found to be volume overloaded due to your worsening renal disease. You have end stage renal disease and your symptoms will continue / progressively worsen. You had some improvement of your symptoms with higher dose Lasix. You would need dialysis for continued treatment/maintenance, however you have expressed no desire for dialysis. You were also found to be in atrial fibrillation - a fast irregular heart rate. The heart rate was controlled with your carvedilol. This can increase risk of developing a blood clot in your hear which can lead to a stroke. With your kidney disease, you are also at risk of bleeding easier as well. As discussed, recommend 81mg aspirin daily for now and not full blood thinners. Home hospice was discussed and you stated you did not want this either. You are discharged home with home health. Your lasix dose has been increased. Follow up with your PCP and Certified Public Accountant. Diet: Renal Activity: As tolerated IMMUNIZATION Influenza Vaccine Indicated: Influenza Vaccine Given: Date Given: Pneumonia Vaccine Indicated: No Pneumonia Vaccine Given: Date Given: Diet: Renal Activity: Ad odin Followup: Rolando Oswald DO [ACTIVE - CAN ADMIT] - Time spent managing pt's care (in minutes): 40
[2021-05-09 17:22] VITALS: BP 181/79; TEMP 97.1
--- NOTE | 2021-05-09 22:59 | P.PN ---
Date of Service: 05/09/21 Vital Signs Temp Pulse Resp BP Pulse Ox 97.1 F 65 17 181/79 H 93 05/09/21 16:00 05/09/21 16:00 05/09/21 16:00 05/09/21 16:00 05/09/21 16:00 Microbiology Results 05/07/21 07:24 Nasopharnyx Influenza Type A Antigen Screen - Final 05/07/21 07:24 Nasopharnyx Influenza Type B Antigen Screen - Final Assessment/ Plan: Nephrology Progress Note Feeling better. Persistent uremic symptoms. No chest pain or dyspnea No acute events overnight Vitals, medications blood work and imaging reviewed in the chart NAD. NCAT. MMM. Neck supple. CTA. RRR. ND Abd. No C/C. LE Edema trace. AAO. Normal speech. A/P Continue current POC and Medications other than the changes listed. AM labs as ordered. Recommend daily weight. CKD V with uremia -No NSAIDs -Recommend she start HD gaudencio Hyponatremia -Encourage nutrition HTN with CKD/ CHF -Continue antihypertensives Diastolic CHF, A/C -Low sodium diet -Continue furosemide Moderate malnutrition -Recommend Nepro Anemia in CKD -Retacrit PRN JOSE/ Secondary HyperPTH -Recommend Renvela -Continue Vitamin D Case reviewed with Dr. Taylor
--- NOTE | 2021-05-10 11:27 | PN ---
Date of Progress Note: 05/08/2021 Subjective: Ms. Short was seen by Dr. Camacho and Nephrology. Admitted by Dr. Herrera for fluid ov erload and elevated troponin. We think her elevated troponin is secondary to fluid overload, congest velasquez heart failure. She needs to have dialysis. Nephrology will be deciding upon that along with the patient's family and . Had normal heart catheterization in 2014. An echocardiogram was dnauta mmended. Her echocardiogram that was done showed severe pulmonary hypertension with a right ventricu lar systolic pressure more than 70 mmHg. Normal ejection fraction. We feel that she has combination of diastolic congestive heart failure, severe pulmonary hypertension, renal failure. I agree with h er present regimen. May benefit from a from a low-dose calcium channel andres. We will be happy to see her in the office as an outpatient. She can go home whenever it is okay with Dr. Betancourt. KANDI/CITLALY Voice ID: [id number] Report ID: [id number]
[2021-05-10 18:09] LABS: HBsAG Nonreactive (Nonreactive)
== END 2021-05-09 17:49 | disposition home or self-care (01) | DRG 280 ==
LOC: ER 05:56 → ERHOLD 10:21 → 2ND 21:25
PROVIDERS: ADMIT Internal Medicine; ATTEND Internal Medicine
DX: I13.2 Hypertensive heart and chronic kidney disease with heart failure and with stage 5 chronic kidney disease, or end stage renal disease (principal); I50.33 Acute on chronic diastolic (congestive) heart failure; I21.A1 Myocardial infarction type 2; J96.01 Acute respiratory failure with hypoxia; N18.5 Chronic kidney disease, stage 5; J44.1 Chronic obstructive pulmonary disease with (acute) exacerbation; E87.1 Hypo-osmolality and hyponatremia; E46 Unspecified protein-calorie malnutrition; E11.22 Type 2 diabetes mellitus with diabetic chronic kidney disease; I48.91 Unspecified atrial fibrillation; K21.9 Gastro-esophageal reflux disease without esophagitis; Z86.711 Personal history of pulmonary embolism; F32.9 Major depressive disorder, single episode, unspecified; Z68.21 Body mass index [BMI] 21.0-21.9, adult; D63.1 Anemia in chronic kidney disease; Z20.822 Contact with and (suspected) exposure to COVID-19
CPT/HCPCS: 36415; 51702; 71045; 80048; 80069; 80076; 81003; 81015; 82947; 83735; 83880; 84100; 84484; 85025; 85610; 86704; 86706; 86803; 87340; 87804; 93005; 93306; 94640; 96372; 96374; 96375; 99285; J0360; J1650; J1940; J2270; J2920; J7512; U0003

== ENCOUNTER 2021-05-13 11:22 | Emergency (ER) | payer OTHER, MEDICARE ==
--- OUTSIDE RECORDS SUMMARY | 2021-05-13 11:25 | XMS REPORT | Continuity of Care Document ---
:1930 Author Organization [facility] t Address [address] [place] [address] Care Team Providers Name Role Phone Radha [...] Date Stop Date Source Natural mother Cancer [facility] Natural mother Diabetes [facility] Social History Social Habit Start Date Stop Date Quantity Comments Source Sex Assigned At [birth year] [facility] 00:00:00 00:00:00 Smoking Status Start Date Stop Date Source Unknown if ever smoked [facility] Medications Ordered Filled Start Stop Current Ordering Indication Dosage Frequency Signature Comments Components Source Medication Medication Date Date Medication? Clinician (SIG) Name Name carvedilol Yes 25mg Q.5D Take 25 mg M ethodi (COREG) 25 -[address] MG tablet 16:07: (two) Hospita 53 times a l day with meals. clonIDINE Yes .1mg Q.[id number] Take 0.1 Methodi (CATAPRES) - [id number] mg by st 0.1 MG 16:07: 3D mouth 3 Hospita tablet 53 (three) l times a day. omeprazole Yes 40mg Take 40 mg M ethodi (PriLOSEC) - by mouth st 40 MG 16:07: as needed. Hospit a capsule 53 l carvedilol Yes 25mg Q.5D Take 25 mg M ethodi (COREG) 25 - by mouth 2 st MG tablet 16:07: (two) Hospita 53 times a l day with meals. clonIDINE 0 Yes .1mg Q.[id number] Take 0.1 [facility] (CATAPRES) 1-[id number] 0.1 MG 16:07: 3D mouth 3 Hospita tablet 53 (three) l times a day. omeprazole Yes 40mg Take 40 mg M ethodi (PriLOSEC) 1-[address] 40 MG 16:07: as needed. Hospit a capsule 53 l glipiZIDE 2017-10 Yes 10mg QD Take 10 mg Me [facility] (GLUCOTROL) 2-[address] 10 MG 24 hr 00:00: daily. Hosp [facility] tablet 00 l glipiZIDE 2017-10 Yes 10mg QD Take 10 mg [facility] (GLUCOTROL) 2-[address] 10 MG 24 hr 00:00: daily. [facility]osp [facility] tablet 00 l FLUoxetine 2017-10 Yes 20mg QD Take 20 mg M ethodi (PROzac) 20 2-[address] MG capsule 00:00: daily. Hospi ta l FLUoxetine 2017-10 Yes 20mg QD Take 20 mg M ethodi (PROzac) 20 2-[address] MG capsule 00:00: daily. Hospi ta l JANUVIA 50 2017-10 Yes 50mg QD Take 50 mg M ethodi mg tablet 2-[address] 00:00: daily. Hospita l JANUVIA 50 2017-10 Yes 50mg QD Take 50 mg M ethodi mg tablet 2-[address] 00:00: daily. Hospita 00 l furosemide 2017-10 Yes 40mg Q.5D Take 40 mg M ethodi (LASIX) 40 1-[address] mg tablet 00:00: (two) Hospita 00 times a l day. furosemide 2017-10 Yes 40mg Q.5D Take 40 mg M ethodi (LASIX) 40 1-[address] mg tablet 00:00: (two) Hospita 00 times a l day. Procedures This patient has no known procedures. Plan of Care Planned Activity Planned Date Details Comments Source Future Scheduled Test 65+ PNEUMOCOCCAL [facility] VACCINE (1 of 4 - PCV13) [code = 65+ PNEUMOCOCCAL VACCINE (1 of 4 - PCV13)] Future Scheduled Test DIABETES: RETINAL EYE [facility] EXAM [code = DIABETES: RETINAL EYE EXAM] Future Scheduled Test DIABETIC FOOT EXAM [facility] [code = DIABETIC FOOT EXAM] Future Scheduled Test 65+ PNEUMOCOCCAL [facility] VACCINE (1 of 4 - PCV13) [code = 65+ PNEUMOCOCCAL VACCINE (1 of 4 - PCV13)] Future Scheduled Test DIABETES: RETINAL EYE [facility] EXAM [code = DIABETES: RETINAL EYE EXAM] Future Scheduled Test DIABETIC FOOT EXAM [facility] [code = DIABETIC FOOT EXAM] Future Scheduled Test URINE MICROALBUMIN [facility] [code = URINE MICROALBUMIN] Future Scheduled Test COVID-19 VACCINE (1) [facility] [code = COVID-19 VACCINE (1)] Future Scheduled Test SHINGLES VACCINES (#1) [facility] [code = SHINGLES VACCINES (#1)] Future Scheduled Test INFLUENZA VACCINE [code [facility] = INFLUENZA VACCINE] Future Scheduled Test URINE MICROALBUMIN [facility] [code = URINE MICROALBUMIN] Future Scheduled Test COVID-19 VACCINE (1) [facility] [code = COVID-19 VACCINE (1)] Future Scheduled Test SHINGLES VACCINES (#1) [facility] [code = SHINGLES VACCINES (#1)] Future Scheduled Test INFLUENZA VACCINE [code [facility] = INFLUENZA VACCINE] Encounters Start End Encounter Admission Attending Care Care Encounter Source Date/Time Date/Time Type Type Clinicians Facility Department ID 2020-10-05 2020-10-05 Pauline Burrows [facility] [id number] 00:00:00 00:00:00 Alireza Mehta SPECIALTY [id number] CARE [id number] [place] AT [id number] [place] 2 [facility] 2020-09-27 2020-09-27 Nurse 1, [facility] [id number] 09:22:54 09:37:54 Visit Infusion [place] [id number] Nurse Matthews [id number] Surgical [id number] [place] [id number] 2020-09-27 Orders Doctor MITCHELL [id number] 00:00:00 00:00:00 Only Unassigned, [place] [id number] [place] [facility] [id number] [id number] 2020-09-14 2020-09-14 Nurse 1, [facility] [id number] 10:35:08 10:50:08 Visit Infusion [place] [id number] Nurse Cassie [id number] Surgical [id number] [place] [id number] 2020-08-29 Nurse 1, [facility] [id number] 10:21:00 10:36:00 Visit [facility]fusion [place] 350.1.13.10 Nurse Cassie [id number] Surgical [id number] [place] [id number] 2020-08-17 Nurse 1, [facility] 1.2.840.114 [id number] 10:03:32 10:18:32 Visit [facility]fusion [place] 350.1.13.10 Nurse Cassie [id number] Surgical [id number] [place] [address] 2020-08-17 2020-08-17 Orders Doctor STEPHEN [id number] 00:00:00 00:00:00 Only Unassigned, [place] 350.1.13.10 [place] [facility] 4.2.7.2.686 [id number] [id number] 2020-08-03 2020-08-03 Nurse 1, [facility] [place] [id number] 10:05:56 10:20:56 Visit Infusion [place] 350.1.13.10 Nurse Cassie 4.2.7.2.686 Surgical [id number] [place] [address] 2020-08-03 2020-08-03 Orders Doctor STEPHEN [id number] 00:00:00 00:00:00 Only Unassigned, AMINATA 350.1.13.10 [place] [facility] 4.2.7.2.686 [id number] [id number] 2020-07-20 2020-07-20 Nurse 1, [facility] 1.2.840.114 [id number] 09:17:23 10:17:23 Visit [facility]fusion [place] 350.1.13.10 Nurse Cassie 4.2.7.2.686 Surgical [id number] [place] [address] Results This patient has no known results.
--- NOTE | 2021-05-13 13:22 | RAD REPORT ---
EXAM DESCRIPTION: US - UPPER EXTREMITY VENOUS UNILATE - 05/13/2021 12:56 pm CLINICAL HISTORY: Left arm swelling COMPARISON: None. TECHNIQUE: Real-time sonographic evaluation of the left upper extremity deep venous system was perfo rmed. FINDINGS: Normal compressibility, flow augmentation, phasic flow and spontaneous flow is identified in the left upper extremity deep venous system. No intraluminal filling defects seen. IMPRESSION: No DVT in the left upper extremity.
--- NOTE | 2021-05-13 13:54 | ER ---
Nurse's Notes [facility] Name: Zafar Short Age: 89 yrs Sex: Female : 1930 Arrival Date: 05/13/2021 Time: 11:23 Bed 8 Private MD: Diagnosis: Cellulitis and acute lymphangitis of other parts of limb-LEFT ARM;Acute kidney failure, unspecified-ON CHRONIC;Non ST elevation IN;Anemia, unspecified;Type 2 diabetes mellitus with hyperglycemia;Cardiomegaly Presentation: 05/13 11:37 Chief complaint: EMS states: has swelling in left arm, sent to ER to r/o DVT, recently iw was placed on hospice for kidney failure, refuses dialysis, has not been eating. Coronavirus screen: At this time, the client does not indicate any symptoms associated with coronavirus-19. Ebola Screen: Patient negative for fever greater than or equal to 101.5 degrees Fahrenheit, and additional compatible Ebola Virus Disease symptoms Patient denies exposure to infectious person. Patient denies travel to an Ebola-affected area in the 21 days before illness onset. No symptoms or risks identified at this time. 11:37 Method Of Arrival: EMS: [facility] iw 11:37 Acuity: FELISHA 3 iw 13:02 Initial Sepsis Screen: Does the patient meet any 2 criteria? No. Patient's initial zb sepsis screen is negative. Does the patient have a suspected source of infection? No. Patient's initial sepsis screen is negative. Risk Assessment: Do you want to hurt yourself or someone else? Patient reports no desire to harm self or others. Onset of symptoms was May 09, 2021. Triage Assessment: 13:00 General: Appears uncomfortable, Behavior is calm. Pain: Complains of pain in left hand zb Pain currently is 10 out of 10 on a pain scale. Neuro: Level of Consciousness is awake, alert, obeys commands, Oriented to person, place, situation. Cardiovascular: Patient's skin is warm and dry. Respiratory: Airway is patent Respiratory effort is even, unlabored, Respiratory pattern is regular, symmetrical. : Stauffer in place to gravity drainage. Derm: Bruising that is. Musculoskeletal: Swelling present in left hand and left arm. Historical: - Allergies: 12:59 Codeine; zb 12:59 PENICILLINS; zb 12:59 Sulfa (Sulfonamide Antibiotics); zb - PMHx: 12:59 Anemia; chronic kidney disease; COPD; Diabetes - NIDDM; Hypertension; pulmonary zb embolisim; - Immunization history:: Adult Immunizations up to date, Client reports having NOT received the Covid vaccine. - Social history:: Smoking status: Patient/guardian denies using tobacco. - Family history:: not pertinent. Screenin:01 Abuse screen: Denies threats or abuse. Denies injuries from another. Nutritional zb screening: no eating . Tuberculosis screening: No symptoms or risk factors identified. Fall Risk Fall in past 12 months (25 points). Secondary diagnosis (15 points) impaired mobility, No IV (0 pts). Ambulatory Aid- None/Bed Rest/Nurse Assist (0 pts). Gait- Impaired (20 pts.). Mental Status- Oriented to own ability (0 pts). Total Tafoya Fall Scale indicates High Risk Score (45 or more points). Fall prevention measures have been instituted. Side Rails Up X 2 Placed Close to Nursing Station Frequent Obs/Assessments Occuring Family Present and informed to notify staff if the need to leave the bedside As available patient and family educated on Fall Prevention Program and Strategies. Assessment: 13:01 Reassessment: See triage note. zb 14:15 Reassessment: Patient appears in no apparent distress at this time. Patient and/or zb family updated on plan of care and expected duration. Pain level reassessed. Patient is alert, oriented x 3, equal unlabored respirations, skin warm/dry/pink. 15:00 Reassessment: d/c pending IV completion. Reassessment:. zb 15:15 Reassessment: Patient appears in no apparent distress at this time. Patient and/or zb family updated on plan of care and expected duration. Pain level reassessed. Patient is alert, oriented x 3, equal unlabored respirations, skin warm/dry/pink. 16:15 Reassessment: Patient appears in no apparent distress at this time. Patient and/or zb family updated on plan of care and expected duration. Pain level reassessed. Patient is alert, oriented x 3, equal unlabored respirations, skin warm/dry/pink. 17:15 Reassessment: Patient appears in no apparent distress at this time. Patient and/or zb family updated on plan of care and expected duration. Pain level reassessed. Patient is alert, oriented x 3, equal unlabored respirations, skin warm/dry/pink. 18:15 Reassessment: Patient appears in no apparent distress at this time. Patient and/or zb family updated on plan of care and expected duration. Pain level reassessed. Patient is alert, oriented x 3, equal unlabored respirations, skin warm/dry/pink. d/c pending iv fluid completion. Vital Signs: 12:30 BP 144 / 69; Pulse 83; Resp 18; Temp 97.7; Pulse Ox 100% on R/A; Weight 65.32 kg; zb Height 5 ft. 6 in. (167.64 cm); Pain 10/10; 13:30 BP 165 / 85; Pulse 77; Resp 17; Pulse Ox 96% on R/A; kg 14:45 BP 175 / 70; Pulse 73; Resp 18; Pulse Ox 94% on R/A; kg 15:45 BP 169 / 81; Pulse 73; Resp 17; Pulse Ox 98% on R/A; kg 16:45 BP 142 / 71; Pulse 81; Resp 15; Pulse Ox 97% on R/A; kg 17:50 BP 144 / 82; Pulse 82; Resp 16; Pulse Ox 100% on R/A; zb 12:30 Body Mass Index 23.24 (65.32 kg, 167.64 cm) zb ED Course: 11:23 Patient arrived in ED. as 11:38 Triage completed. iw 12:23 Thor Bello MD is Attending Physician. cornel 12:50 Isabel Huang, EMILY is Primary Nurse. zb 12:56 UPPER EXTREMITY VENOUS UNILATE In Process Unspecified. EDMS 13:02 Patient has correct armband on for positive identification. personnel monitor on. Pulse zb ox on. NIBP on. 13:44 XRAY Chest (1 view) In Process Unspecified. EDMS 13:51 Jayesh Taylor MD is Hospitalizing Provider. cornel 14:08 EKG done, by ED staff, reviewed by Thor Bello MD. em1 14:30 Inserted saline lock: 18 gauge in left EJ, using aseptic technique. ,using aseptic zb technique. performed by Thor Bello MD Blood collected. 16:07 Rolando Oswald DO is Referral Physician. cornel 18:17 Arm band placed on. zb 18:17 No provider procedures requiring assistance completed. IV discontinued, intact, zb bleeding controlled, No redness/swelling at site. Pressure dressing applied. Administered Medications: 14:51 Drug: levofloxacin 500 mg Volume: 100 ml; Route: IVPB; Infused Over: 60 mins; Site: zb left jugular; 16:00 Follow up: Response: No adverse reaction; IV Status: Completed infusion; IV Intake: zb 100ml 14:52 Drug: NS 0.9% 1000 ml Route: IV; Rate: 75 ml/hr; Site: left jugular; zb 17:30 Follow up: Response: No adverse reaction; IV Status: Completed infusion; IV Intake: zb 300ml 16:22 Drug: vancoMYCIN 20 mg/kg Route: IVPB; Site: left jugular; zb 18:30 Follow up: Response: No adverse reaction; IV Status: Completed infusion; IV Intake: zb 250ml Intake: 16:00 IV: 100ml; Total: 100ml. zb 17:30 IV: 300ml; Total: 400ml. zb 18:30 IV: 250ml; Total: 650ml. zb Outcome: 13:54 Decision to Hospitalize by Provider. cornel 16:08 Discharge ordered by . cornel 18:17 Discharged to home via wheelchair. zb 18:17 Condition: stable 18:17 Discharge instructions given to patient, family, Instructed on discharge instructions, follow up and referral plans. medication usage, Demonstrated understanding of instructions, follow-up care, medications, Prescriptions given X 1. 18:38 Patient left the ED. aa5 Signatures: Dispatcher [employer] Thor Monahan MD MD cha Martinez, Amelia as Williams, Irene, RN Bear Treadwell em1 Delphine Calles RN RN aa5 Isabel Huang RN RN zMarisol Dowell RN RN kg
--- NOTE | 2021-05-13 13:54 | EDPHYS ---
Physician Documentation [facility] Name: Zafar Short Age: 89 yrs Sex: Female : 1930 Arrival Date: 05/13/2021 Time: 11:23 Bed 8 Private MD: MELE Physician Thor Bello HPI: 05/13 13:44 This 89 yrs old Female presents to ER via EMS with complaints of Arm Pain. cornel 13:44 This 89 yrs old Female presents to ER via EMS with complaints of Arm Pain. cornel 13:44 The patient or guardian complains of decreased range of motion, pain, swelling, cornel tenderness. The complaints affect the left bicep, left antecubital area, dorsal aspect of left forearm, left tricep, left elbow and palmar aspect of left forearm. Context: The problem was sustained at an unknown location. Onset: The symptoms/episode began/occurred 3 day(s) ago. Treatment prior to arrival includes: no previous treatment. Modifying factors: The symptoms are alleviated by nothing. the symptoms are aggravated by movement, bending arm. Associated signs and symptoms: The patient has no apparent associated signs or symptoms. Severity of symptoms: At their worst the symptoms were moderate, in the emergency department the symptoms are unchanged. The patient has not experienced similar symptoms in the past. Historical: - Allergies: 12:59 Codeine; zb 12:59 PENICILLINS; zb 12:59 Sulfa (Sulfonamide Antibiotics); zb - PMHx: 12:59 Anemia; chronic kidney disease; COPD; Diabetes - NIDDM; Hypertension; pulmonary zb embolisim; - Immunization history:: Adult Immunizations up to date, Client reports having NOT received the Covid vaccine. - Social history:: Smoking status: Patient/guardian denies using tobacco. - Family history:: not pertinent. ROS: 13:44 Constitutional: Negative for fever, chills, and weight loss, Eyes: Negative for injury, cornel pain, redness, and discharge, ENT: Negative for injury, pain, and discharge, Neck: Negative for injury, pain, and swelling, Cardiovascular: Negative for chest pain, palpitations, and edema, Respiratory: Negative for shortness of breath, cough, wheezing, and pleuritic chest pain, Abdomen/GI: Negative for abdominal pain, nausea, vomiting, diarrhea, and constipation, Back: Negative for injury and pain, : Negative for injury, bleeding, discharge, and swelling, Neuro: Negative for headache, weakness, numbness, tingling, and seizure, Psych: Negative for depression, anxiety, suicide ideation, homicidal ideation, and hallucinations, Allergy/Immunology: Negative for hives, rash, and allergies, Endocrine: Negative for neck swelling, polydipsia, polyuria, polyphagia, and marked weight changes, Hematologic/Lymphatic: Negative for swollen nodes, abnormal bleeding, and unusual bruising. 13:44 MS/extremity: Positive for decreased range of motion, erythema, pain, swelling, tenderness, of the left bicep, left antecubital area and dorsal aspect of left forearm. 13:44 Skin: Positive for cellulitis, erythema, swelling, of the left bicep, left antecubital area and dorsal aspect of left forearm. Exam: 13:44 Constitutional: This is a well developed, well nourished patient who is awake, alert, cornel and in no acute distress. Head/Face: Normocephalic, atraumatic. Eyes: Pupils equal round and reactive to light, extra-ocular motions intact. Lids and lashes normal. Conjunctiva and sclera are non-icteric and not injected. Cornea within normal limits. Periorbital areas with no swelling, redness, or edema. ENT: Nares patent. No nasal discharge, no septal abnormalities noted. Tympanic membranes are normal and external auditory canals are clear. Oropharynx with no redness, swelling, or masses, exudates, or evidence of obstruction, uvula midline. Mucous membranes moist. Neck: Trachea midline, no thyromegaly or masses palpated, and no cervical lymphadenopathy. Supple, full range of motion without nuchal rigidity, or vertebral point tenderness. No Meningismus. Chest/axilla: Normal chest wall appearance and motion. Nontender with no deformity. No lesions are appreciated. Cardiovascular: Regular rate and rhythm with a normal S1 and S2. No gallops, murmurs, or rubs. Normal PMI, no JVD. No pulse deficits. Respiratory: Lungs have equal breath sounds bilaterally, clear to auscultation and percussion. No rales, rhonchi or wheezes noted. No increased work of breathing, no retractions or nasal flaring. Abdomen/GI: Soft, non-tender, with normal bowel sounds. No distension or tympany. No guarding or rebound. No evidence of tenderness throughout. Back: No spinal tenderness. No costovertebral tenderness. Full range of motion. Female : Normal external genitalia. Neuro: Awake and alert, GCS 15, oriented to person, place, time, and situation. Cranial nerves II-XII grossly intact. Motor strength 5/5 in all extremities. Sensory grossly intact. Cerebellar exam normal. Normal gait. Psych: Awake, alert, with orientation to person, place and time. Behavior, mood, and affect are within normal limits. 13:44 Musculoskeletal/extremity: ROM: limited active range of motion, limited passive range of motion, in the left arm, Circulation is intact in all extremities. Sensation intact. Compartment Syndrome exam of affected extremity: is normal. 13:44 Skin: cellulitis, that is mild, that is moderate, on the left arm, induration, that is moderate is noted, injury, iv infiltration. 14:12 ECG was reviewed by the Attending Physician. [facility] Vital Signs: 12:30 BP 144 / 69; Pulse 83; Resp 18; Temp 97.7; Pulse Ox 100% on R/A; Weight 65.32 kg; zb Height 5 ft. 6 in. (167.64 cm); Pain 10/10; 13:30 BP 165 / 85; Pulse 77; Resp 17; Pulse Ox 96% on R/A; kg 14:45 BP 175 / 70; Pulse 73; Resp 18; Pulse Ox 94% on R/A; kg 15:45 BP 169 / 81; Pulse 73; Resp 17; Pulse Ox 98% on R/A; kg 16:45 BP 142 / 71; Pulse 81; Resp 15; Pulse Ox 97% on R/A; kg 17:50 BP 144 / 82; Pulse 82; Resp 16; Pulse Ox 100% on R/A; zb 12:30 Body Mass Index 23.24 (65.32 kg, 167.64 cm) zb MDM: 12:[address] [facility] 14:11 Differential diagnosis: abrasion, tendonitis. Data reviewed: vital signs, nurses notes, [facility] lab test result(s), EKG, radiologic studies, plain films. Data interpreted: cutter down: rate is 79 beats/min, rhythm is regular. Test interpretation: by ED physician or midlevel provider: ECG, plain radiologic studies. Counseling: I had a detailed discussion with the patient and/or guardian regarding: the historical points, exam findings, and any diagnostic results supporting the discharge/admit diagnosis, lab results, radiology results. 05/13 13:19 Order name: Basic Metabolic Panel; Complete Time: 15:[address] [facility] 05/13 13:19 Order name: CBC with Diff; Complete Time: 15:[address] [facility] 05/13 13:19 Order name: LFT's; Complete Time: 15:[address] [facility] 05/13 13:19 Order name: Magnesium; Complete Time: 15:[address] [facility] 05/13 13:19 Order name: NT PRO-BNP; Complete Time: 15:[address] [facility] 05/13 13:19 Order name: PT-INR; Complete Time: 15:[address] [facility] 05/13 12:12 Order name: UPPER EXTREMITY VENOUS UNILATE; Complete Time: 13:55 [facility] 05/13 13:19 Order name: Troponin (emerg Dept Use Only); Complete Time: 15:[address] [facility] 05/13 13:19 Order name: XRAY Chest (1 view); Complete Time: 15:[address] [facility] 05/13 13:19 Order name: Blood Culture Adult (2) [facility] 05/13 13:19 Order name: Urine Culture [facility] 05/13 13:19 Order name: COVID-19 : Document "Date of Symptom Onset" if Symptomatic. [facility] 05/13 16:32 Order name: Urine Dipstick-Ancillary [facility] 05/13 13:19 Order name: EKG; Complete Time: 13:[address] [facility] 05/13 13:19 Order name: Cardiac monitoring; Complete Time: 13:[address] [facility] 05/13 13:19 Order name: EKG - Nurse/Tech; Complete Time: 14:[address] [facility] 05/13 13:19 Order name: IV Saline Lock; Complete Time: 15:[address] [facility] 05/13 13:19 Order name: Labs collected and sent; Complete Time: 15:[address] [facility] 05/13 13:19 Order name: O2 Per Protocol; Complete Time: 15:[address] [facility] 05/13 13:19 Order name: O2 Sat Monitoring; Complete Time: 15:[address] [facility] 05/13 13:19 Order name: Urine Dipstick-Ancillary (obtain specimen); Complete Time: 16:[address] [facility] 05/13 13:19 Order name: Misc. Order: left arm elevate; Complete Time: 13:[address] [facility] EC:12 Rate is 79 beats/min. Rhythm is irregularly irregular. QRS [place] is Normal. CO interval cornel is normal. QRS interval is prolonged at 148 msec. QT interval is normal. No Q waves. T waves are Normal. No ST changes noted. Clinical impression: Abnormal EKG without significant change, LVH, and No evidence of ischemia. Reviewed by me. Administered Medications: 14:51 Drug: levofloxacin 500 mg Volume: 100 ml; Route: IVPB; Infused Over: 60 mins; Site: zb left jugular; 16:00 Follow up: Response: No adverse reaction; IV Status: Completed infusion; IV Intake: zb 100ml 14:52 Drug: NS 0.9% 1000 ml Route: IV; Rate: 75 ml/hr; Site: left jugular; zb 17:30 Follow up: Response: No adverse reaction; IV Status: Completed infusion; IV Intake: zb 300ml 16:22 Drug: vancoMYCIN 20 mg/kg Route: IVPB; Site: left jugular; zb 18:30 Follow up: Response: No adverse reaction; IV Status: Completed infusion; IV Intake: zb 250ml Disposition Summary: 05/13/21 16:08 Discharge Ordered Location: Home(05/13/21 16:08) cornel Problem: new(05/13/21 16:08) cornel Symptoms: have improved(05/13/21 16:08) cornel Condition: Stable(05/13/21 16:08) cornel Diagnosis - Cellulitis and acute lymphangitis of other parts of limb - LEFT ARM(05/13/21 16:08) cornel - Acute kidney failure, unspecified - ON CHRONIC(05/13/21 16:08) cornel - Non ST elevation PA(05/13/21 16:15) cornel - Anemia, unspecified cornel - Type 2 diabetes mellitus with hyperglycemia(05/13/21 16:15) cornel - Cardiomegaly cornel Followup: cornel - With: Private Physician - When: 2 - 3 days - Reason: Recheck today's complaints, Continuance of care, Re-evaluation by your physician Followup: cornel - With: Rolando Oswald DO - When: 2 - 3 days - Reason: Recheck today's complaints, Re-evaluation by your physician Discharge Instructions: - Discharge Summary Sheet cornel - Cellulitis, Adult cornel - Cellulitis, Adult, [id number] cornel - Type 2 Diabetes Mellitus, Diagnosis, Adult cornel - Hyperglycemia cornel - Heart Attack cornel - Acute Kidney Injury, Adult cornel - Chronic Kidney Disease, Adult, [id number] cornel - Uremia cornel - Hospice cornel - Heart Attack, [id number] cornel Forms: - Medication Reconciliation Form cornel - Thank You Letter cornel - Antibiotic Education cornel - Prescription Opioid Use cornel Prescriptions: - levofloxacin 250 mg Oral Tablet - take 1 tablet by ORAL route every other day 1 EVERY 48 HOURS; 4 tablet; cornel Refills: 0, Product Selection Permitted Signatures: Dispatcher [employer] EDMS Thor Bello MD MD cha Brown, Zipporah RN RN zb Corrections: (The following items were deleted from the chart) 12:12 12:10 Extremity Venous Uni [id number] ordered. [facility] EDNM 15:23 13:54 Unspecified kidney failure - chronic cornel cornel 16:07 13:54 Inpatient Admission cornel cornel 16:07 13:54 Jayesh Taylor cornel cornle 16:07 13:54 Telemetry/MedSurg (Inpatient) cornel cornel 16:07 13:54 Fair cornel cornel 16:07 13:54 new cornel cornel 16:07 13:54 have improved cornel cornel 16:07 13:54 Standard cornel cornel 16:07 13:54 cornel cornel 16:07 13:54 Cellulitis and acute lymphangitis of other parts of limb - left upper extremity cornel cornel 16:07 13:54 Type 2 diabetes mellitus with hyperglycemia cornel cornel 16:07 14:14 Unspecified atrial fibrillation cornel cornel 16:07 15:23 Acute kidney failure, unspecified - on chronic cornel cornel 16:07 15:[address] elevation PA cornel cornel 16:15 16:08 Hyperkalemia cornel cornel
--- NOTE | 2021-05-13 13:56 | RAD REPORT ---
EXAM DESCRIPTION: RAD - Chest Single View - 05/13/2021 1:44 pm CLINICAL HISTORY: COUGH COMPARISON: Chest Single View dated 05/09/2021; Chest Single View dated 05/07/2021; Chest Single View da berry 03/10/2017; CHEST SINGLE VIEW dated 03/14/2015 FINDINGS: No evidence of edema or pneumonia. Cardiomegaly.No acute osseous abnormality. No significa nt pleural effusions or pneumothorax. IMPRESSION: No acute cardiopulmonary disease.
[2021-05-13 14:43] LABS: Absolute Lymphocytes (CBC) 0.1 K/uL (0.7-4.9); Basophils % 0.3 % (0-1.3); Hematocrit 28.1 % (36.0-45.0); Lymphocytes % 1.3 % (15.3-44.8); MPV 10.5 fL (7.6-11.3); RBC Red Blood Cell Count 3.12 M/uL (3.86-4.86)
[2021-05-13 14:48] LABS: Protime INR 1.1
[2021-05-13] MEDS ORDERED: VANCOMYCIN 1 GM/VIAL ONE (15:00)
[2021-05-13] MEDS ORDERED: NA CHLORIDE 0.9% 250 ML ONE (15:00)
[2021-05-13] MEDS ORDERED: NA CHLORIDE 0.9% 1,000 ML ONE (15:00)
[2021-05-13] MEDS ORDERED: Levofloxacin500mg IV 500 MG/100 ML BAG IV ONE (15:00)
[2021-05-13 15:11] LABS: Albumin 2.8 g/dL (3.4-5.0); Bilirubin Direct 0.3 mg/dL (0-0.2); Bilirubin Total 0.6 mg/dL (0.2-1.0); Magnesium 3.3 mg/dL (1.8-2.4); Potassium 4.4 mmol/L (3.5-5.1); Protein, Total 6.6 g/dL (6.4-8.2)
[2021-05-13 15:12] LABS: Troponin (Emerg Dept Use Only) 1.71 ng/mL (0.0-0.045)
--- NOTE | 2021-05-13 16:25 | P.CNS ---
Date of Consult: 05/13/21 Reason for Consult: ER Evaluateion Requesting Physician: Thor Bello Primary Care Provider: Dr. Oswald Chief Complaint: Left arm swelling History of Present Illness: 89-year-old female with history of chronic renal disease stage V, chronic diastolic CHF, atrial fibrillation not on chronic anticoagulation therapy, hypertension, CAD, diabetes mellitus type 2, and recent hospitalization for CHF/elevated troponin with ischemic demand. Patient was discharged last week. Patient was deciding on whether she wanted hospice as the patient had further kidney decline. Dialysis was recommended. Patient refused. Hospice was recently set up. Today she noticed increased swelling to the left upper extremity. She came to get this further evaluated. She denies any fever, chills. ER evaluated the patient. White count 11.4, hemoglobin from 9.1. Platelet count 192. Sodium 134, potassium 4.4. BUN of 149, creatinine 6.38 with a GFR of 6. Glucose 248. Troponin 1.7 BNP 81,000. Chest x-ray unremarkable. Venous Doppler negative. Patient was evaluated for possible admission or return back home with hospice. Patient prefers to go back home with hospice. This was discussed in detail with the patient and . Patient is DNR. Allergies codeine Allergy (Verified 05/07/21 22:26) Rash Penicillins Allergy (Verified 05/07/21 22:26) Rash propoxyphene HCl [From Darvon] Allergy (Verified 05/07/21 22:26) Rash Sulfa (Sulfonamide Antibiotics) Allergy (Verified 05/07/21 22:26) Rash hydralazine Adverse Reaction (Verified 05/07/21 22:27) unknown calcium andres Adverse Reaction (Uncoded 05/07/21 22:27) unknown Home medications list reviewed: Yes Home Medications: Carvedilol [Coreg] 25 mg PO DAILY 05/08/21 Cholecalciferol (Vitamin D3) [Vitamin D3] 5,000 unit PO DAILY 05/08/21 Cyanocobalamin [Vitamin B-12*] 1,000 mcg PO DAILY 05/08/21 Ferrous Sulfate [Iron] 1 tab PO DAILY 05/08/21 Fluoxetine HCl 20 mg PO DAILY 05/08/21 Glipizide [Glipizide Xl] 10 mg PO DAILY 05/08/21 Sitagliptin Phosphate [Januvia] 25 mg PO BID 05/08/21 cloNIDine HCL [Clonidine HCl] 0.1 mg PO BID 05/08/21 Amlodipine Besylate [Norvasc] 5 mg PO DAILY 30 Days #30 tablet 05/09/21 Furosemide [Lasix] 40 mg PO BID 30 Days #60 tablet 05/09/21 Sevelamer Carbonate [Renvela] 2 tab PO TIDWM 30 Days #180 tablet 05/09/21 predniSONE [Prednisone*] 20 mg PO SEECOM 7 Days #10 tab 05/09/21 - Past Medical/Surgical History Diabetic: Yes -: HTN -: Diabetes mellitus type 2 -: Chronic renal disease stage V -: Depression -: History of PE with Vinny filter -: Chronic diastolic CHF -: Atrial fibrillation not on chronic anticoagulation therapy -: Urinary retention -: Arthritis -: CAD -: hyst -: appy -: rafal -: back sx 1987 -: R knee replaement -: R hand surgery -: R rotator cuff sx Psychosocial/ Personal History: Patient lives at home. Currently with hospice - Family History Father Medical History: Stroke Mother Medical History: Hypertension, Cancer Sister Medical History: Hypertension, Diabetes, Cancer - Social History Smoking Status: Former smoker Alcohol use: No CD- Drugs: No Caffeine use: Yes Place of Residence: Home Review of Systems General: Weakness, As per HPI Eyes: Unremarkable ENT: Unremarkable Respiratory: Unremarkable Cardiovascular: Unremarkable Gastrointestinal: Unremarkable Genitourinary: Unremarkable Musculoskeletal: As per HPI (Left upper extremity swelling. No significant erythema) Integumentary: Unremarkable Neurological: Confusion, As per HPI Lymphatics: Unremarkable Physical Examination Laboratory Data (last 24 hrs) 05/13/21 14:24: PT 12.7 H, INR 1.10 05/13/21 14:24: WBC 11.40 H D, Hgb 9.1 L, Hct 28.1 L, Plt Count 192 05/13/21 14:24: Sodium 134 L, Potassium 4.4, BUN 149 H, Creatinine 6.38 H*, Glucose 248 H, Magnesium 3.3 H, Total Bilirubin 0.6, AST 12 L, ALT 27, Alkaline Phosphatase 41 L Conclusions/Impression: Chest x-ray: Unremarkable Venous Doppler: No DVT to the upper extremity left side Physical Exam: GENERAL: The patient is a well-developed, well-nourished, in no apparent distress. Alert and oriented x3. VITAL SIGNS: Reviewed HEENT: Head is normocephalic and atraumatic. Extraocular muscles are intact. Pupils are equal, round, and reactive to light and accommodation. Nares appeared normal. Mouth is well hydrated and without lesions. Mucous membranes are moist. NECK: Supple. No carotid bruits. No lymphadenopathy or thyromegaly. LUNGS: Clear to auscultation. No crackles or wheezes are heard. HEART: Regular rate and rhythm, no appreciable gallops, rubs, murmurs or extra heart sounds ABDOMEN: Soft, nontender, and nondistended. Positive bowel sounds. No hepatosplenomegaly was noted. EXTREMITIES: Without any cyanosis, clubbing, rash, lesions or peripheral edema. NEUROLOGIC: The patient is oriented to person, place and time. Strength and sensation are grossly intact. Face is symmetric. SKIN: Normal color, turgor and temperature. No ulcerations or rashes noted. Impression: Left upper extremity swelling suspect early cellulitis Chronic renal disease stage V not wanting dialysis Chronic diastolic CHF Atrial fibrillation not on chronic anticoagulation therapy Diabetes mellitus type 2 Hypertension Plan: Patient currently in hospice. This was discussed in detail with and patient. Patient does not want to be hospitalized at this time. She prefer to continue with oral antibiotic therapy for her cellulitis. This was discussed in detail with the and nephrology. As the patient is on hospice and desires no intervention this appears to be the most appropriate decision. Patient agrees. agrees. Patient will return to hospice at home. Patient will continue with Levaquin 250 mg every 48 hours x 3 doses. Patient to elevate left arm when sitting or lying. This can be further monitored closely by hospice. As mentioned before patient with chronic renal disease stage V. Patient does not want any dialysis. Continue with comfort measures. Patient with history of chronic diastolic CHF. Patient may continue with diuretic therapy. Patient with atrial fibrillation not on chronic anticoagulation therapy this can be monitored closely. Patient with diabetes mellitus type 2, hypertension, anemia of chronic disease. Overall stable. Continue with hospice and comfort measures. Patient has medication for pain at home. Patient to be discharged from the ER. Case discussed in detail with ER physician who agrees with plan of care. Code Status: DNR Advanced Care Planning-30 minutes: Patient will return home with hospice in place. Comfort measures to be continued. Continue with treatment plan above. Time Spent Managing Pts care (In Minutes): 55
[2021-05-13 16:32] LABS: Urine Blood 1+ (Negative); Urine Glucose Trace (Negative); Urine Protein 2+ (Negative); Urine pH 5.5 (5.0-7.0)
[2021-05-13 18:56] VITALS: TEMP 97.7
[2021-05-13 19:07] VITALS: BP 144/82; O2SAT 100
== END 2021-05-13 18:38 | disposition home or self-care (01) ==
LOC: ER 11:22
DX: L03.114 Cellulitis of left upper limb (principal); L03.124 Acute lymphangitis of left upper limb; E11.22 Type 2 diabetes mellitus with diabetic chronic kidney disease; I12.9 Hypertensive chronic kidney disease with stage 1 through stage 4 chronic kidney disease, or unspecified chronic kidney disease; N18.9 Chronic kidney disease, unspecified; N17.9 Acute kidney failure, unspecified; I21.4 Non-ST elevation (NSTEMI) myocardial infarction; D64.9 Anemia, unspecified; E11.65 Type 2 diabetes mellitus with hyperglycemia; I51.7 Cardiomegaly; Z20.822 Contact with and (suspected) exposure to COVID-19; Z88.0 Allergy status to penicillin; Z88.2 Allergy status to sulfonamides; Z88.5 Allergy status to narcotic agent
CPT/HCPCS: 96365; 96367; 93005; 87040 ×2; 87088; 85025; 87086; 80048; 36415; 83735; 85610; 80076; 81003; 84484; 83880; 71045; 93971; 99285; 96366; J3370; J7050; J7030; 87077; 87186